=== PATIENT | female | born 1930 | race Caucasian/White ===

== ENCOUNTER 2021-01-20 15:40 | Inpatient (IN) | payer MEDICARE, OTHER ==
[2021-01-20] MEDS ORDERED: HYDROmorphone 0.5 MG/0.5 ML SYRINGE IVP STA (16:02)
[2021-01-20] MEDS ORDERED: SODIUM CHLORIDE 0.9% 500 ML 500 ML IV STA (16:02)
[2021-01-20] MEDS ORDERED: ONDANSETRON 4 MG/2 ML VIAL IVP STA (16:02)
--- NOTE | 2021-01-20 16:27 | ED ---
General Adult HPI - General Chief complaint: Abdominal Pain Stated complaint: Abd Pain Time Seen by Provider: 01/20/21 15:48 Source: patient, EMS, RN notes reviewed, old records reviewed Mode of arrival: EMS Limitations: no limitations - History of Present Illness Initial comments: 89-year-old female presenting for evaluation of upper abdominal pain which began approximately 4 hours prior to arrival. She's had multiple episodes of vomiting. She was transported by EMS, given Zofran and Toradol. She denies lower abdominal pain. She denies chest pain or shortness of breath. No preceding fever. Patient's pain began suddenly - Related Data Home Medications Medication Instructions Recorded Confirmed Acetaminophen [Tylenol Arthritis] 650 mg PO TID PRN 01/20/21 01/20/21 Apixaban [Eliquis] 5 mg PO BID 01/20/21 01/20/21 Atorvastatin Calcium [Lipitor] 40 mg PO HS 01/20/21 01/20/21 Calcium Carbonate [Calcium] 1,200 mg PO HS 01/20/21 01/20/21 Clopidogrel [Plavix] 75 mg PO DAILY@1200 01/20/21 01/20/21 Famotidine 20 mg PO BID 01/20/21 01/20/21 Ferrous Sulfate [Feosol] 325 mg PO BID@1200,199901/20/21 01/20/21 Furosemide [Lasix] 40 mg PO DAILY 01/20/21 01/20/21 Gabapentin [Neurontin] 300 mg PO BID 01/20/21 01/20/21 Latanoprost/Pf [Latanoprost 0.005% 1 drop BOTH EYES HS 01/20/21 01/20/21 Eye Drop] Loratadine [Claritin] 10 mg PO DAILY 01/20/21 01/20/21 Metoprolol Succinate (ER) [Toprol 100 mg PO DAILY 01/20/21 01/20/21 Xl] Mirabegron [Myrbetriq] 25 mg PO DAILY@1200 01/20/21 01/20/21 Potassium Chloride [Klor-Con 20] 20 meq PO DAILY 01/20/21 01/20/21 amLODIPine [Norvasc] 5 mg PO DAILY 01/20/21 01/20/21 hydrALAZINE HCL [Apresoline] 50 mg PO BID 01/20/21 01/20/21 metFORMIN HCL [Glucophage] 500 mg PO BID 01/20/21 01/20/21 Allergies Allergy/AdvReac Type Severity Reaction Status Date / Time No Known Allergies Allergy Verified 01/20/21 18:08 Review of Systems ROS Statement: Those systems with pertinent positive or pertinent negative responses have been documented in the HPI. ROS Other: All systems not noted in ROS Statement are negative. Past Medical History Past Medical History: Atrial Fibrillation, Diabetes Mellitus, Hypertension History of Any Multi-Drug Resistant Organisms: None Reported Past Surgical History: No Surgical Hx Reported Past Psychological History: No Psychological Hx Reported Smoking Status: Never smoker Past Alcohol Use History: Occasional Past Drug Use History: None Reported General Exam Limitations: no limitations General appearance: alert, in no apparent distress Head exam: Present: atraumatic, normocephalic Eye exam: Present: normal appearance, PERRL ENT exam: Present: normal exam Neck exam: Present: normal inspection. Absent: tenderness, meningismus Respiratory exam: Present: normal lung sounds bilaterally. Absent: respiratory distress, wheezes Cardiovascular Exam: Present: regular rate, irregular rhythm GI/Abdominal exam: Present: soft, distended, tenderness. Absent: guarding, rebound Extremities exam: Present: normal inspection, normal capillary refill. Absent: pedal edema Neurological exam: Present: alert, oriented X3, CN II-XII intact. Absent: motor sensory deficit Psychiatric exam: Present: normal affect, normal mood Skin exam: Present: warm, dry, intact. Absent: cyanosis, diaphoretic Course Vital Signs 01/20/21 15:43 Temperature 97.6 F Pulse Rate 60 Respiratory 18 Rate Blood Pressure 146/87 O2 Sat by Pulse 98 Oximetry EKG Findings - EKG Comments: EKG Findings:: EKG: A fibrillation low-voltage, rate 74, QRS duration 76, QTC [address] segment elevation. Medical Decision Making - Medical Decision Making 89-year-old female presenting for evaluation of abdominal pain. Patient is tender, across both upper quadrants but more severely tender in the right upper quadrant. She has had multiple episodes of vomiting. Workup reveals mild leukocytosis, 11.2. She has a normal lactic acid, normal transaminitis, normal bilirubin. Urinalysis is pending. CT shows a distended gallbladder, 5 cm. Concerning for acute cholecystitis. I discussed case with Dr. Hooks, recommends patient be admitted to internal medicine, with her on consultation. She will be kept nothing by mouth. IV antibiotics have been initiated. Patient and family agreeable with plan. - Lab Data Result diagrams: 01/20/21 16:12 01/20/21 16:12 Lab Results 01/20/21 01/20/21 01/20/21 Range/Units 16:12 16:12 16:12 WBC 11.2 H (3.8-10.6) k/uL RBC 3.53 L (3.80-5.40) m/uL Hgb 10.9 L (11.4-16.0) gm/dL Hct 34.9 (34.0-46.0) % MCV 98.9 (80.0-100.0) fL MCH 30.8 (25.0-35.0) pg MCHC 31.1 (31.0-37.0) g/dL RDW 13.6 (11.5-15.5) % Plt Count 481 H (150-450) k/uL MPV 7.8 Neutrophils % 74 % Lymphocytes % 16 % Monocytes % 6 % Eosinophils % 2 % Basophils % 0 % Neutrophils # 8.3 H (1.3-7.7) k/uL Lymphocytes # 1.8 (1.0-4.8) k/uL Monocytes # 0.7 (0-1.0) k/uL Eosinophils # 0.2 (0-0.7) k/uL Basophils # 0.1 (0-0.2) k/uL PT 11.2 (9.0-12.0) sec INR 1.1 (<1.2) APTT 26.0 (22.0-30.0) sec Sodium 138 (137-145) mmol/L Potassium 4.3 (3.5-5.1) mmol/L Chloride 106 (98-107) mmol/L Carbon Dioxide 24 (22-30) mmol/L Anion Gap 8 mmol/L BUN 20 H (7-17) mg/dL Creatinine 0.84 (0.52-1.04) mg/dL Est GFR (CKD-EPI)AfAm 72 (>60 ml/min/1.73 sqM) Est GFR (CKD-EPI)NonAf 62 (>60 ml/min/1.73 sqM) Glucose 148 H (74-99) mg/dL Plasma Lactic Acid Mil (0.7-2.0) mmol/L Calcium 10.8 H (8.4-10.2) mg/dL Total Bilirubin 0.5 (0.2-1.3) mg/dL AST 30 (14-36) U/L ALT 14 (4-34) U/L Alkaline Phosphatase 78 (38-126) U/L Troponin I (0.000-0.034) ng/mL Total Protein 6.8 (6.3-8.2) g/dL Albumin 3.9 (3.5-5.0) g/dL Amylase 83 (30-110) U/L Lipase 134 (23-300) U/L 01/20/21 01/20/21 Range/Units 16:12 16:12 WBC (3.8-10.6) k/uL RBC (3.80-5.40) m/uL Hgb (11.4-16.0) gm/dL Hct (34.0-46.0) % MCV (80.0-100.0) fL MCH (25.0-35.0) pg MCHC (31.0-37.0) g/dL RDW (11.5-15.5) % Plt Count (150-450) k/uL MPV Neutrophils % % Lymphocytes % % Monocytes % % Eosinophils % % Basophils % % Neutrophils # (1.3-7.7) k/uL Lymphocytes # (1.0-4.8) k/uL Monocytes # (0-1.0) k/uL Eosinophils # (0-0.7) k/uL Basophils # (0-0.2) k/uL PT (9.0-12.0) sec INR (<1.2) APTT (22.0-30.0) sec Sodium (137-145) mmol/L Potassium (3.5-5.1) mmol/L Chloride (98-107) mmol/L Carbon Dioxide (22-30) mmol/L Anion Gap mmol/L BUN (7-17) mg/dL Creatinine (0.52-1.04) mg/dL Est GFR (CKD-EPI)AfAm (>60 ml/min/1.73 sqM) Est GFR (CKD-EPI)NonAf (>60 ml/min/1.73 sqM) Glucose (74-99) mg/dL Plasma Lactic Acid Mil 1.9 (0.7-2.0) mmol/L Calcium (8.4-10.2) mg/dL Total Bilirubin (0.2-1.3) mg/dL AST (14-36) U/L ALT (4-34) U/L Alkaline Phosphatase (38-126) U/L Troponin I <0.012 (0.000-0.034) ng/mL Total Protein (6.3-8.2) g/dL Albumin (3.5-5.0) g/dL Amylase (30-110) U/L Lipase (23-300) U/L Disposition Clinical Impression: Abdominal pain, Acute cholecystitis Disposition: ADMITTED IP TO THIS [facility] Condition: Stable Is patient prescribed a controlled substance at d/c from ED?: No Referrals: Mohinder Tuttle DO [Primary Care Provider] - 1-2 days Decision to Admit Reason: Admit from EC Decision Date: 01/20/21 Decision Time: 18:15
[2021-01-20 16:30] LABS: Basophils # (A) 0.1 k/uL (0-0.2); Basophils % (A) 0 %; Eosinophils # (A) 0.2 k/uL (0-0.7); Eosinophils % (A) 2 %; HCT 34.9 % (34.0-46.0); HGB 10.9 gm/dL (11.4-16.0); Lymphocytes # (A) 1.8 k/uL (1.0-4.8); Lymphocytes % (A) 16 %; MCH 30.8 pg (25.0-35.0); MCHC 31.1 g/dL (31.0-37.0); MCV 98.9 fL (80.0-100.0); Mean Platelet Volume 7.8; Monocytes # (A) 0.7 k/uL (0-1.0); Monocytes % (A) 6 %; Neutrophils # (A) 8.3 k/uL (1.3-7.7); Neutrophils % (A) 74 %; Platelet Count 481 k/uL (150-450); RBC 3.53 m/uL (3.80-5.40); RDW 13.6 % (11.5-15.5); WBC 11.2 k/uL (3.8-10.6)
[2021-01-20 16:40] LABS: Albumin 3.9 g/dL (3.5-5.0); Calcium 10.8 mg/dL (8.4-10.2); INR 1.1 (<1.2); Potassium 4.3 mmol/L (3.5-5.1); Prothrombin Time 11.2 sec (9.0-12.0); Total Bilirubin 0.5 mg/dL (0.2-1.3); Total Protein 6.8 g/dL (6.3-8.2)
--- NOTE | 2021-01-20 17:36 | CT ---
EXAMINATION TYPE: CT abdomen pelvis w con DATE OF EXAM: 01/20/2021 COMPARISON: None HISTORY: upper abd pain CT DLP: 829.4 mGycm Automated exposure control for dose reduction was used. CONTRAST: Performed with IV Contrast, patient injected with 80 mL of Isovue 300. Images obtained from the diaphragm to the floor the pelvis with IV contrast. There is patchy interstitial infiltrates in the lower lobes bilaterally. There is atherosclerotic vas cular calcification. There is dense calcification in the mitral annulus. Heart is enlarged. There is no pleural effusion. There is dilated gallbladder measuring 5 cm in diameter. The bile ducts are not dilated. Spleen is in tact. The stomach is intact. There is no evidence of pancreatic mass. There is no adrenal mass. Kidneys show normal size and contour. There is 2 cm cortical cyst anterior left kidney. There is no hydronephrosis. There is no retroperitoneal adenopathy. Abdominal aorta is a theromatous. There is small hiatal hernia. Ureters are not dilated. The bladder distends smoothly. There is no inguinal hernia. There is no free fluid in the pelvis. There is no evidence of a pelvic mass. There is no mesenteric edema. There is no ascites or free air. There is no evidence of a bowel obstru ction. Appendix is posterior and appears normal. There are sigmoid diverticula. There is no evidence of diverticulitis. There are spondylotic changes of the lumbar spine. There is multilevel lumbar bony spinal stenosis. S tenosis is very severe at L4-5. There is less severe stenosis at L3-4. The bony pelvis is intact. The hip joints appear intact. IMPRESSION: Moderate atherosclerotic vascular disease. Mild sigmoid diverticulosis. Interstitial infiltrates and atelectasis in both lower lobes. Cardiomegaly. Dilated gallbladder suggestive of a bladder dysfunction or cholecystitis. No dilated ducts. Lumbar spondylotic changes with levoscoliosis and significant spinal stenosis at L4-5.
[2021-01-20] MEDS ORDERED: cefTRIAXone IN SWFI 1,000 MG/10 ML SYRINGE IVP STA (17:57)
[2021-01-20] MEDS ORDERED: NALOXONE 0.4 MG/ML 1 ML VIAL IV PRN (18:11)
[2021-01-20] MEDS ORDERED: metroNIDAZOLE-NS PMX 500 MG in SALINE 1 100ML.BAG IVPB STA (18:15)
[2021-01-20] MEDS: SODIUM CHLORIDE 0.9% 1,000 ML IV SCH (18:54)
[2021-01-20] MEDS: HYDROmorphone 0.5 MG/0.5 ML SYRINGE IVP PRN ×2 (19:03→22:14)
[2021-01-20 19:09] LABS: Appearance,Urine Clear (Clear); Bilirubin,Urine Negative (Negative); Blood,Urine Negative (Negative); Color,Urine Light Yellow; Glucose,Urine (UA) Negative (Negative); Ketones,Urine Negative (Negative); Leukocyte Esterase,Urine Negative (Negative); Nitrite,Urine Negative (Negative); PH, Urine 6.5 (5.0-8.0); Protein,Urine Negative (Negative); Specific Gravity,Urine 1.024 (1.001-1.035); Urobilinogen,Urine <2.0 mg/dL (<2.0)
[2021-01-20 20:34] LABS: Glucose,Whole Blood 137 mg/dL (75-99)
[2021-01-20] MEDS: ONDANSETRON 4 MG/2 ML VIAL IVP PRN (22:14)
--- NOTE | 2021-01-20 22:18 | P.HPIM ---
History of Present Illness H&P Date: 01/20/21 The patient is an 89-year-old female with a PMH of ALinnette gamez on Eliquis, type II DM, and hypertension who presents to the emergency room with complaints of sudden onset of abdominal pain. The patient reports that she was in her usual state of health until noon today when she suddenly developed right upper quadrant abdominal pain, 10 out of 10, with radiation throughout the upper abdomen. She reports associated nausea with several episodes of vomiting, nonbloody nonbilious. She reports never having such pain in the past. She reports that the pain was not associated with any obvious food intakes. She denied experiencing diarrhea, fever, or chills. At time of interview, she reported that her pain had improved to a 2 out of 10. She denied any history of gallbladder issues or pain. She further denied chest discomfort, shortness of breath, cough. In the emergency room a CT abdomen and pelvis with contrast revealed findings consistent with acute cholecystitis with a dilated gallbladder without any distended ducts. Laboratory evaluation was remarkable for WBC count of 11.2, platelets 41, hemoglobin 10.9, lactic acid 1.9, calcium 10.8, unremarkable UA, and positive coronavirus PCR. Review of systems: Pertinent positives and negatives as discussed in HPI, a complete review of systems was performed and all other systems are negative. Physical examination: General: non toxic, no distress, appears at stated age, normal weight Derm: no unusual rashes/lesions no unusual ecchymoses, warm, dry Head: atraumatic, normocephalic, symmetric Eyes: EOMI, no lid lag, anicteric sclera, pupils equal round reactive to light ENT: Nose and ears atraumatic, no thrush, no pharyngeal erythema Neck: No thyromegaly, no cervical lymphadenopathy, trachea midline, supple Mouth: no lip lesion, mucus membranes moist Cardiovascular: S1S2 reg, systolic murmur appreciated, positive posterior tibial pulse bilateral, no edema, capillary refill less than 2 seconds Lungs: CTA bilateral, no rhonchi, no rales , no accessory muscle use Abdominal: soft, mild abdominal tenderness largely in the right upper quadrant, some guarding, no appreciable organomegaly, hypoactive bowel sounds Ext: no gross muscle atrophy, muscle strength 4 out of 5 in all 4 extremities grossly, no contractures, Neuro: CN II-XI grossly intact, light touch intact all 4 extremities, finger to nose within normal limits, Psych: Alert, oriented, appropriate affect Assessment/plan Abdominal pain, suspected secondary to acute cholecystitis -Surgery consulted -Continue with IV fluids and IV antibiotics ceftriaxone and Flagyl -Hold the patient's Eliquis in anticipation of possible surgery Preoperative evaluation -The patient reports that she lives with her daughter but is fairly independent and is able to perform most of her ADLs (ie washing dishes, doing laundry) -She does not use any mobility devices -NSQIP Score: Serious complications: 2.7% vs 2.2 (average risk); Cardiac complications: 0.3% vs 0.1% (average risk) -The patient is a moderate risk of perioperative complications due to her advanced age and multiple comorbidities -Risks and benefits should be discussed in detail including any possible non- operative options Coronavirus PCR positive -The patient is currently denying SOB, fever, or chest pain -Not requiring supplemental oxygen at this time -The patient is vaccinated and had also received her booster shot Thrombocytosis -Possibly reactive -Monitor for now Chronic conditions: Type 2 DM, hypertension, hyperlipidemia -Continue home meds -Check A1c -Hold oral hypoglycemics -Lispro insulin sliding scale and blood glucose monitoring DVT prophylaxis -Heparin subq The patient is admitted with an anticipated greater than 2 midnight stay for evaluation of acute cholecystitis CODE STATUS: Full Code Discussed with: Patient Anticipated discharge date: 2-[address]: Home Past Medical History Past Medical History: Atrial Fibrillation, Diabetes Mellitus, Hypertension History of Any Multi-Drug Resistant Organisms: None Reported Past Surgical History: No Surgical Hx Reported Past Psychological History: No Psychological Hx Reported Smoking Status: Never smoker Past Alcohol Use History: Occasional Past Drug Use History: None Reported - Past Family History Mother Family Medical History: Unable to Obtain (Not applicable due to patient's advanced age) Medications and Allergies Home Medications Medication Instructions Recorded Confirmed Type Acetaminophen [Tylenol Arthritis] 650 mg PO TID PRN 01/20/21 01/20/21 History Apixaban [Eliquis] 5 mg PO BID 01/20/21 01/20/21 History Atorvastatin Calcium [Lipitor] 40 mg PO HS 01/20/21 01/20/21 History Calcium Carbonate [Calcium] 1,200 mg PO HS 01/20/21 01/20/21 History Clopidogrel [Plavix] 75 mg PO DAILY@1200 01/20/21 01/20/21 History Famotidine 20 mg PO BID 01/20/21 01/20/21 History Ferrous Sulfate [Feosol] 325 mg PO BID@1200,199901/20/21 01/20/21 History Furosemide [Lasix] 40 mg PO DAILY 01/20/21 01/20/21 History Gabapentin [Neurontin] 300 mg PO BID 01/20/21 01/20/21 History Latanoprost/Pf [Latanoprost 0.005% 1 drop BOTH EYES HS 01/20/21 01/20/21 History Eye Drop] Loratadine [Claritin] 10 mg PO DAILY 01/20/21 01/20/21 History Metoprolol Succinate (ER) [Toprol 100 mg PO DAILY 01/20/21 01/20/21 History Xl] Mirabegron [Myrbetriq] 25 mg PO DAILY@119901/20/21 01/20/21 History Potassium Chloride [Klor-Con 20] 20 meq PO DAILY 01/20/21 01/20/21 History amLODIPine [Norvasc] 5 mg PO DAILY 01/20/21 01/20/21 History hydrALAZINE HCL [Apresoline] 50 mg PO BID 01/20/21 01/20/21 History metFORMIN HCL [Glucophage] 500 mg PO BID 01/20/21 01/20/21 History traMADol HCL 50 mg PO TID PRN 01/20/21 01/20/21 History Allergies Allergy/AdvReac Type Severity Reaction Status Date / Time No Known Allergies Allergy Verified 01/20/21 18:08 Physical Exam Vitals: Vital Signs Temp Pulse Pulse Resp BP BP Pulse Ox 01/20/21 20:23 97.6 F 84 16 173/73 98 01/20/21 18:51 74 18 155/72 99 01/20/21 15:43 97.6 F 60 18 146/87 98 Intake and Output 01/20/21 01/20/21 01/20/21 06:59 14:59 22:59 Other: Weight 58.513 kg Results CBC & Chem 7: 01/20/21 16:12 01/20/21 16:12 Labs: Abnormal Lab Results - Last 24 Hours (Table) 01/20/21 01/20/21 01/20/21 Range/Units 16:12 16:12 18:50 WBC 11.2 H (3.8-10.6) k/uL RBC 3.53 L (3.80-5.40) m/uL Hgb 10.9 L (11.4-16.0) gm/dL Plt Count 481 H (150-450) k/uL Neutrophils # 8.3 H (1.3-7.7) k/uL BUN 20 H (7-17) mg/dL Glucose 148 H (74-99) mg/dL POC Glucose (mg/dL) (75-99) mg/dL Calcium 10.8 H (8.4-10.2) mg/dL Coronavirus (PCR) Detected A (Not Detectd) 01/20/21 Range/Units 20:33 WBC (3.8-10.6) k/uL RBC (3.80-5.40) m/uL Hgb (11.4-16.0) gm/dL Plt Count (150-450) k/uL Neutrophils # (1.3-7.7) k/uL BUN (7-17) mg/dL Glucose (74-99) mg/dL POC Glucose (mg/dL) 137 H (75-99) mg/dL Calcium (8.4-10.2) mg/dL Coronavirus (PCR) (Not Detectd)
[2021-01-20] MEDS: LATANOPROST 0.005% OPHTH DROPS 2.5 ML BTL BOTH EYES SCH (22:40)
[2021-01-21] MEDS: HEPARIN SODIUM,PORCINE/PF 5,000 UNIT/0.5 ML SYRINGE SQ SCH ×3 (00:10→17:28)
[2021-01-21] MEDS: metroNIDAZOLE-NS PMX 500 MG in SALINE 1 100ML.BAG IVPB SCH ×3 (02:09→21:46)
[2021-01-21] MEDS: ONDANSETRON 4 MG/2 ML VIAL IVP PRN (07:33)
[2021-01-21] MEDS: HYDROmorphone 0.5 MG/0.5 ML SYRINGE IVP PRN (07:33)
[2021-01-21 08:20] LABS: Glucose,Whole Blood 157 mg/dL (75-99)
[2021-01-21] MEDS: INSULIN ASPART (NovoLOG) 100 UNIT/ML VIAL SQ SCH ×4 (08:38→21:37)
[2021-01-21] MEDS ORDERED: FUROSEMIDE 40 MG TAB PO SCH (09:00)
[2021-01-21] MEDS ORDERED: FAMOTIDINE 20 MG TAB PO SCH (09:00)
[2021-01-21] MEDS: hydrALAZINE HCL 50 MG TAB PO SCH ×2 (09:53→21:47)
[2021-01-21] MEDS: METOPROLOL SUCCINATE (ER) 100 MG TAB.ER.24H PO SCH (09:53)
[2021-01-21] MEDS: GABAPENTIN 300 MG CAP PO SCH ×2 (09:53→21:46)
[2021-01-21] MEDS: amLODIPine 5 MG TAB PO SCH (09:53)
[2021-01-21] MEDS: POTASSIUM CHLORIDE ER 20 MEQ TAB.ER PO SCH (09:53)
[2021-01-21 11:26] LABS: HCT 32.8 % (37.2-46.3); HGB 9.9 g/dL (12.0-15.0); MCH 30.7 pg (27.0-32.0); MCHC 30.2 g/dL (32.0-37.0); MCV 101.9 fL (80.0-97.0); Mean Platelet Volume 10.2 fL (9.5-12.2); Platelet Count 425 X 10*3/uL (140-440); RBC 3.22 X 10*6/uL (4.10-5.20); RDW 14.6 % (11.5-14.5); WBC 24.81 X 10*3/uL (4.50-10.00)
[2021-01-21] MEDS ORDERED: CLOPIDOGREL 75 MG TAB PO SCH (12:00)
[2021-01-21 12:25] LABS: Glucose,Whole Blood 149 mg/dL (75-99)
[2021-01-21 13:26] LABS: African American GFR (CKD) 53.1 (60.0-200.0); Albumin 3.5 g/dL (3.8-4.9); Albumin/Globulin Ratio 1.67 (1.60-3.17); Anion Gap 13.7 mmol/L (4.00-12.00); BUN/Creat Ratio 18.06 Ratio (12.00-20.00); Blood Urea Nitrogen 19.5 mg/dL (9.0-27.0); Calcium 9.4 mg/dL (8.7-10.3); Carbon Dioxide 20.5 mmol/L (21.6-31.8); Globulin 2.1 g/dL (1.6-3.3); Non-African American GFR(CKD) 45.8 (60.0-200.0); Potassium 4.2 mmol/L (3.5-5.5); Total Bilirubin 1.1 mg/dL (0.30-1.20); Total Protein 5.6 g/dL (6.2-8.2)
--- NOTE | 2021-01-21 13:28 | P.GSCN ---
History of Present Illness Consult date: 01/21/21 History of present illness: CHIEF COMPLAINT: Abdominal pain HISTORY OF PRESENT ILLNESS: 89-year-old female with a past medical history of atrial fibrillation, diabetes mellitus, and hypertension who presented to the emergency department yesterday with complaints of abdominal pain. The patient was complaining of abdominal pain that started 1-2 days ago mostly located in the lower abdomen as well as right upper quadrant. She had a CT of the abdomen and pelvis that showed moderate arthrosclerotic vascular disease mild sigmoid diverticulosis. Interstitial infiltrates and atelectasis both lower lobes with cardiomegaly. There is a dilated gallbladder suggestive of bladder dysfunction or cholecystitis. No dilated ducts. Gen. surgery was consulted for abdominal pain and evaluation of gallbladder. Patient denies any previous history of gal lbladder disease. Denies any previous abdominal pain that has been similar. States she has no abdominal pain at this time. On admission she was testing positive for COVID-19. On admission WBC 11.2 with a repeat today of 24.8, hemoglobin 9.9 platelet count 425,000 INR 1.1 LFTs within normal limits, amylase 83, lipase 134. The patient is on Ahlquist and Plavix for atrial fibrillation. She's a spike in her temp early this morning to 100.3. She is denying any associated nausea or vomiting with the abdominal pain. She continues to state she has no abdominal pain at this time along with no nausea or vomiting. States bowel movements have been normal. PAST MEDICAL HISTORY: Atrial fibrillation, diabetes mellitus, hypertension PAST SURGICAL HISTORY: No Reported surgical history MEDICATIONS: See list. ALLERGIES: See list. SOCIAL HISTORY: No illicit drug use. REVIEW OF SYSTEMS: CONSTITUTIONAL: Denies fever or chills. HEENT: Denies blurred vision, vision changes, or eye pain. Denies hemoptysis ENDOCRINE: Denies heat or cold intolerance. CARDIOVASCULAR: Denies chest pain or pressure. RESPIRATORY: No shortness of breath. GASTROINTESTINAL: Abdominal pain reported over the last 1-2 days, currently denies abdominal pain at this time. Denies nausea or vomiting. NEURO: Denies history of seizures. PSYCH: No depression or suicidal ideation HEMATOLOGIC: Denies bleeding disorders. LYMPHATIC: The patient denies any lumps and bumps around the neck. GENITOURINARY: Denies any blood in urine or increased urinary frequency. MUSCULOSKELETAL: Denies myalgias. Denies joint swelling. Denies decreased range of motion beyond patients baseline. SKIN: Denies pruitis. Denies rash. PHYSICAL EXAM: VITAL SIGNS: Reviewed GENERAL: Well-developed in no acute distress. HEENT: No sclera icterus. Extraocular movements grossly intact. Moist buccal mucosa. Head is atraumatic, normocephalic. Hears conversational speech. No nasal drainage. NECK: Supple without lymphadenopathy. CHEST: Non-labored respirations and equal bilateral excursions. CARDIOVASCULAR: Palpable 2+ radial pulses. ABDOMEN: Soft. Nondistended. Lower abdominal tenderness with palpation. MUSCULOSKELETAL: No clubbing or cyanosis. NEUROLOGIC: No focal or lateralizing signs. Cranial nerves II through XII grossly intact. PSYCH: Appropriate affect. Alert and oriented to person, place and time. SKIN: Well perfused. Good skin turgor. LABORATORY DATA: WBC 24.8 hemoglobin 9.9 hematocrit 32.8 platelet count 425,000 INR 1.1 sodium 138 potassium 4.3 BUN 20 creatinine 0.84 glucose 149 Total bilirubin 0.5 AST 30 ALT 14 alkaline phosphatase 78 amylase 83 lipase 134 Humphrey virus PCR positive IMAGING: CT of the abdomen and pelvis that showed moderate arthrosclerotic vascular disease mild sigmoid diverticulosis. Interstitial infiltrates and atelectasis both lower lobes with cardiomegaly. There is a dilated gallbladder suggestive of bladder dysfunction or cholecystitis. No dilated ducts. ASSESSMENT: 1. Abdominal pain 2. Leukocytosis 3. Humphrey virus PCR positive 4. Atrial fibrillation on Eliquis 5. Diabetes mellitus 6. Hypertension PLAN: - HIDA scan ordered - Repeat CBC with differential tomorrow - Clear liquid diet after HIDA scan - Further recommendations forthcoming from surgeon Thank you for this consultation allowing us take part in the plan of care of your patient during her hospital stay. The impression and plan of care has been dictated as directed. Dr. Hooks I performed a history and examination of this patient, discussed the same with the dictator. I agree with the dictator's note ,documented as a scribe. Any additional findings or plans will be noted. Past Medical History Past Medical History: Atrial Fibrillation, Diabetes Mellitus, Hypertension History of Any Multi-Drug Resistant Organisms: None Reported Past Surgical History: No Surgical Hx Reported Past Psychological History: No Psychological Hx Reported Smoking Status: Never smoker Past Alcohol Use History: Occasional Past Drug Use History: None Reported - Past Family History Mother Family Medical History: Unable to Obtain (Not applicable due to patient's advanced age) Medications and Allergies Home Medications Medication Instructions Recorded Confirmed Type Acetaminophen [Tylenol Arthritis] 650 mg PO TID PRN 01/20/21 01/20/21 History Apixaban [Eliquis] 5 mg PO BID 01/20/21 01/20/21 History Atorvastatin Calcium [Lipitor] 40 mg PO HS 01/20/21 01/20/21 History Calcium Carbonate [Calcium] 1,200 mg PO HS 01/20/21 01/20/21 History Clopidogrel [Plavix] 75 mg PO DAILY@1200 01/20/21 01/20/21 History Famotidine 20 mg PO BID 01/20/21 01/20/21 History Ferrous Sulfate [Feosol] 325 mg PO BID@1200,199901/20/21 01/20/21 History Furosemide [Lasix] 40 mg PO DAILY 01/20/21 01/20/21 History Gabapentin [Neurontin] 300 mg PO BID 01/20/21 01/20/21 History Latanoprost/Pf [Latanoprost 0.005% 1 drop BOTH EYES HS 01/20/21 01/20/21 History Eye Drop] Loratadine [Claritin] 10 mg PO DAILY 01/20/21 01/20/21 History Metoprolol Succinate (ER) [Toprol 100 mg PO DAILY 01/20/21 01/20/21 History Xl] Mirabegron [Myrbetriq] 25 mg PO DAILY@1200 01/20/21 01/20/21 History Potassium Chloride [Klor-Con 20] 20 meq PO DAILY 01/20/21 01/20/21 History amLODIPine [Norvasc] 5 mg PO DAILY 01/20/21 01/20/21 History hydrALAZINE HCL [Apresoline] 50 mg PO BID 01/20/21 01/20/21 History metFORMIN HCL [Glucophage] 500 mg PO BID 01/20/21 01/20/21 History traMADol HCL 50 mg PO TID PRN 01/20/21 01/20/21 History Allergies Allergy/AdvReac Type Severity Reaction Status Date / Time No Known Allergies Allergy Verified 01/20/21 18:08 Surgical - Exam Vital Signs Temp Pulse Resp BP Pulse Ox 97.6 F 60 18 146/87 98 01/20/21 15:43 01/20/21 15:43 01/20/21 15:43 01/20/21 15:43 01/20/21 15:43 Results - Labs 01/21/21 06:49 01/20/21 16:12 Abnormal Lab Results - Last 24 Hours (Table) 01/20/21 01/20/21 01/20/21 Range/Units 16:12 16:12 18:50 WBC 11.2 H (3.8-10.6) k/uL RBC 3.53 L (3.80-5.40) m/uL Hgb 10.9 L (11.4-16.0) gm/dL Hct (37.2-46.3) % MCV (80.0-97.0) fL MCHC (32.0-37.0) g/dL RDW (11.5-14.5) % Plt Count 481 H (150-450) k/uL Neutrophils # 8.3 H (1.3-7.7) k/uL BUN 20 H (7-17) mg/dL Glucose 148 H (74-99) mg/dL POC Glucose (mg/dL) (75-99) mg/dL Calcium 10.8 H (8.4-10.2) mg/dL Coronavirus (PCR) Detected A (Not Detectd) 01/20/21 01/21/21 01/21/21 Range/Units 20:33 06:49 08:12 WBC 24.81 H (3.8-10.6) k/uL RBC 3.22 L (3.80-5.40) m/uL Hgb 9.9 L (11.4-16.0) gm/dL Hct 32.8 L (37.2-46.3) % MCV 101.9 H (80.0-97.0) fL MCHC 30.2 L (32.0-37.0) g/dL RDW 14.6 H (11.5-14.5) % Plt Count (150-450) k/uL Neutrophils # (1.3-7.7) k/uL BUN (7-17) mg/dL Glucose (74-99) mg/dL POC Glucose (mg/dL) 137 H 157 H (75-99) mg/dL Calcium (8.4-10.2) mg/dL Coronavirus (PCR) (Not Detectd) 01/21/21 Range/Units 12:19 WBC (3.8-10.6) k/uL RBC (3.80-5.40) m/uL Hgb (11.4-16.0) gm/dL Hct (37.2-46.3) % MCV (80.0-97.0) fL MCHC (32.0-37.0) g/dL RDW (11.5-14.5) % Plt Count (150-450) k/uL Neutrophils # (1.3-7.7) k/uL BUN (7-17) mg/dL Glucose (74-99) mg/dL POC Glucose (mg/dL) 149 H (75-99) mg/dL Calcium (8.4-10.2) mg/dL Coronavirus (PCR) (Not Detectd) Diabetes panel 01/20/21 Range/Units 16:12 Sodium 138 (137-145) mmol/L Potassium 4.3 (3.5-5.1) mmol/L Chloride 106 (98-107) mmol/L Carbon Dioxide 24 (22-30) mmol/L BUN 20 H (7-17) mg/dL Creatinine 0.84 (0.52-1.04) mg/dL Glucose 148 H (74-99) mg/dL Calcium 10.8 H (8.4-10.2) mg/dL AST 30 (14-36) U/L ALT 14 (4-34) U/L Alkaline Phosphatase 78 (38-126) U/L Total Protein 6.8 (6.3-8.2) g/dL Albumin 3.9 (3.5-5.0) g/dL Calcium panel 01/20/21 Range/Units 16:12 Calcium 10.8 H (8.4-10.2) mg/dL Albumin 3.9 (3.5-5.0) g/dL Pituitary panel 01/20/21 Range/Units 16:12 Sodium 138 (137-145) mmol/L Potassium 4.3 (3.5-5.1) mmol/L Chloride 106 (98-107) mmol/L Carbon Dioxide 24 (22-30) mmol/L BUN 20 H (7-17) mg/dL Creatinine 0.84 (0.52-1.04) mg/dL Glucose 148 H (74-99) mg/dL Calcium 10.8 H (8.4-10.2) mg/dL Adrenal panel 01/20/21 Range/Units 16:12 Sodium 138 (137-145) mmol/L Potassium 4.3 (3.5-5.1) mmol/L Chloride 106 (98-107) mmol/L Carbon Dioxide 24 (22-30) mmol/L BUN 20 H (7-17) mg/dL Creatinine 0.84 (0.52-1.04) mg/dL Glucose 148 H (74-99) mg/dL Calcium 10.8 H (8.4-10.2) mg/dL Total Bilirubin 0.5 (0.2-1.3) mg/dL AST 30 (14-36) U/L ALT 14 (4-34) U/L Alkaline Phosphatase 78 (38-126) U/L Total Protein 6.8 (6.3-8.2) g/dL Albumin 3.9 (3.5-5.0) g/dL
--- NOTE | 2021-01-21 15:02 | NM ---
EXAMINATION TYPE: NM hepatobiliary wo EF DATE OF EXAM: 01/21/2021 COMPARISON: CT abdomen and pelvis from yesterday HISTORY: Upper abdominal pain. Diminished appetite. TECHNIQUE: After the intravenous administration of 4.14 mCi Tc 99m Mebrofenin hepatobiliary scintigra phy is performed. Immediate images post injection. FINDINGS: There is satisfactory initial accumulation of tracer by the liver. The gallbladder is not distinctly visualized even after 35 minutes. The small bowel activity is noted within 15 minutes. Patient refu sed to continue imaging after 35 minutes. IMPRESSION: Nonvisualized gallbladder is consistent with acute cholecystitis though the exam was not completely extended to 60 minutes to be more definitive.
[2021-01-21] MEDS: ACETAMINOPHEN TAB 325 MG TAB PO PRN (15:27)
--- NOTE | 2021-01-21 16:33 | P.PN ---
Subjective Progress Note Date: 01/21/21 Principal diagnosis: Acute cholecystitis Patient just received Dilaudid for pain. She is currently slightly off. She is unable to provide accurate complaints at this point. She had a maximum temperature of 100.3 last night. Objective - Vital Signs Vital signs: Vital Signs Temp 97.6 F 01/21/21 15:00 Pulse 78 01/21/21 15:00 Resp 16 01/21/21 15:00 BP 150/71 01/21/21 15:00 Pulse Ox 96 01/21/21 15:00 Intake & Output 01/20/21 01/21/21 01/21/21 18:59 06:59 18:59 Weight 58.513 kg 58.513 kg Other: Voiding Method External Catheter External Catheter # Voids 2 - Exam Constitutional: No acute distress, conversant, pleasant Eyes:Anicteric sclerae, moist conjunctiva, no lid-lag, PERRLA, ENMT: Oropharynx clear, no erythema, exudates Neck: Supple, FROM, no masses, or JVD, No carotid bruits, No thyromegaly Lungs: Clear to auscultation, Clear to percussion, Normal respiratory effort, no accessory muscle use Cardiovascular: Heart regular in rate and rhythm, No murmurs, gallops, or rubs, No peripheral edema Abdominal: Soft, very tender especially in the right upper quadrant, no guarding, rebound or rigidity, Normoactive bowel sounds, No hepatomegaly, No splenomegaly, No palpable mass Skin: Normal temperature, tone, texture, turgor, no induration, No subcutaneous nodules, No rash, lesions, No ulcers Extremities: No digital cyanosis, No clubbing, Pedal pulses intact and symmetrical, Radial pulses intact and symmetrical, No calf tenderness Psychiatric: Alert and oriented to person, place but not to time, appropriate af fect, intact judgement Neuro: Muscles Strength 5/5 in all 4 extremities, Sensation to light touch grossly present throughout, Cranial nerves II-XII grossly intact, no focal sensory deficits - Labs CBC & Chem 7: 01/21/21 06:49 01/21/21 06:49 Labs: Abnormal Lab Results - Last 24 Hours (Table) 01/20/21 01/20/21 01/20/21 Range/Units 16:12 16:12 18:50 WBC 11.2 H (3.8-10.6) k/uL RBC 3.53 L (3.80-5.40) m/uL Hgb 10.9 L (11.4-16.0) gm/dL Hct (37.2-46.3) % MCV (80.0-97.0) fL MCHC (32.0-37.0) g/dL RDW (11.5-14.5) % Plt Count 481 H (150-450) k/uL Neutrophils # 8.3 H (1.3-7.7) k/uL Carbon Dioxide (21.6-31.8) mmol/L Anion Gap (4.00-12.00) mmol/L BUN 20 H (7-17) mg/dL Est GFR (CKD-EPI)AfAm (60.0-200.0) Est GFR (CKD-EPI)NonAf (60.0-200.0) Glucose 148 H (74-99) mg/dL POC Glucose (mg/dL) (75-99) mg/dL Calcium 10.8 H (8.4-10.2) mg/dL AST (13-35) U/L ALT (8-44) U/L Total Protein (6.2-8.2) g/dL Albumin (3.8-4.9) g/dL Coronavirus (PCR) Detected A (Not Detectd) 01/20/21 01/21/21 01/21/21 Range/Units 20:33 06:49 06:49 WBC 24.81 H (3.8-10.6) k/uL RBC 3.22 L (3.80-5.40) m/uL Hgb 9.9 L (11.4-16.0) gm/dL Hct 32.8 L (37.2-46.3) % MCV 101.9 H (80.0-97.0) fL MCHC 30.2 L (32.0-37.0) g/dL RDW 14.6 H (11.5-14.5) % Plt Count (150-450) k/uL Neutrophils # (1.3-7.7) k/uL Carbon Dioxide 20.5 L (21.6-31.8) mmol/L Anion Gap 13.70 H (4.00-12.00) mmol/L BUN (7-17) mg/dL Est GFR (CKD-EPI)AfAm 53.1 L (60.0-200.0) Est GFR (CKD-EPI)NonAf 45.8 L (60.0-200.0) Glucose 141 H (74-99) mg/dL POC Glucose (mg/dL) 137 H (75-99) mg/dL Calcium (8.4-10.2) mg/dL AST 264 H (13-35) U/L ALT 138 H (8-44) U/L Total Protein 5.6 L (6.2-8.2) g/dL Albumin 3.5 L (3.8-4.9) g/dL Coronavirus (PCR) (Not Detectd) 01/21/21 01/21/21 Range/Units 08:12 12:19 WBC (3.8-10.6) k/uL RBC (3.80-5.40) m/uL Hgb (11.4-16.0) gm/dL Hct (37.2-46.3) % MCV (80.0-97.0) fL MCHC (32.0-37.0) g/dL RDW (11.5-14.5) % Plt Count (150-450) k/uL Neutrophils # (1.3-7.7) k/uL Carbon Dioxide (21.6-31.8) mmol/L Anion Gap (4.00-12.00) mmol/L BUN (7-17) mg/dL Est GFR (CKD-EPI)AfAm (60.0-200.0) Est GFR (CKD-EPI)NonAf (60.0-200.0) Glucose (74-99) mg/dL POC Glucose (mg/dL) 157 H 149 H (75-99) mg/dL Calcium (8.4-10.2) mg/dL AST (13-35) U/L ALT (8-44) U/L Total Protein (6.2-8.2) g/dL Albumin (3.8-4.9) g/dL Coronavirus (PCR) (Not Detectd) Assessment and Plan Plan: Abdominal pain, suspected secondary to acute cholecystitis -Surgery consulted -Continue with IV fluids and IV antibiotics ceftriaxone and Flagyl -Hold the patient's Eliquis in anticipation of possible surgery Coronavirus PCR positive -The patient is currently denying SOB, fever, or chest pain -Not requiring supplemental oxygen at this time -The patient is vaccinated and had also received her booster shot Thrombocytosis -Possibly reactive -Monitor for now Chronic conditions: Type 2 DM, hypertension, hyperlipidemia -Continue home meds -A1c 5.9 -Hold oral hypoglycemics -Lispro insulin sliding scale and blood glucose monitoring DVT prophylaxis -Heparin subq CODE STATUS: Full Code Discussed with: Patient Anticipated discharge date: 2-[address]: Home
[2021-01-21 17:55] LABS: Glucose,Whole Blood 158 mg/dL (75-99)
--- NOTE | 2021-01-21 18:41 | XR ---
EXAMINATION: XR chest 1V portable DATE AND TIME: 01/21/2021 5:58 PM CLINICAL INDICATION: covid positive TECHNIQUE: AP upright portable COMPARISON: None FINDINGS: Right lung appears clear radiographically, as does the upper left lung parenchyma. There is homogeneo us added opacity over the lower left lung, which appears to represent soft tissue; this is allowing v isualization of the left lower lobe. Lateral radiography, or CT imaging, can further characterize. The pleural spaces are negative as seen. The cardiac silhouette is not enlarged. The remainder of the mediastinal silhouette is unremarkable. The skeletal structures and soft tissues are negative for acute findings. IMPRESSION: Soft tissue opacity over entire lower half of left hemithorax.
[2021-01-21 21:18] LABS: Glucose,Whole Blood 138 mg/dL (75-99)
[2021-01-21] MEDS: SODIUM CHLORIDE 0.9% 1,000 ML IV SCH ×2 (21:43→21:44)
[2021-01-21] MEDS: ATORVASTATIN 40 MG TAB PO SCH (21:46)
[2021-01-21] MEDS: LATANOPROST 0.005% OPHTH DROPS 2.5 ML BTL BOTH EYES SCH (21:47)
[2021-01-22] MEDS: metroNIDAZOLE-NS PMX 500 MG in SALINE 1 100ML.BAG IVPB SCH ×3 (03:37→20:21)
[2021-01-22 07:24] LABS: Glucose,Whole Blood 134 mg/dL (75-99)
[2021-01-22 08:54] LABS: Basophils # (A) 0.1 k/uL (0-0.2); Basophils % (A) 1 %; Eosinophils # (A) 0.1 k/uL (0-0.7); Eosinophils % (A) 1 %; HCT 29.6 % (34.0-46.0); Lymphocytes # (A) 1.4 k/uL (1.0-4.8); Lymphocytes % (A) 10 %; MCH 31.9 pg (25.0-35.0); MCHC 31.7 g/dL (31.0-37.0); MCV 100.5 fL (80.0-100.0); Macrocytosis Slight; Mean Platelet Volume 7.6; Monocytes # (A) 0.8 k/uL (0-1.0); Monocytes % (A) 5 %; Neutrophils # (A) 11.9 k/uL (1.3-7.7); Neutrophils % (A) 81 %; Platelet Count 363 k/uL (150-450); RBC 2.94 m/uL (3.80-5.40); RDW 14.4 % (11.5-15.5); WBC 14.7 k/uL (3.8-10.6)
[2021-01-22 08:56] LABS: HGB 9.4 gm/dL (11.4-16.0)
--- NOTE | 2021-01-22 08:57 | P.PN ---
Progress Note - Text Progress Note Date: 01/22/21 Spoke to daughter April [phone] regarding her mother. Patient has positive HIDA scan with acute cholecystitis and has sepsis. Patient has significant cardiac history and was given plavix last night. Patient is also COVID+. Recommend cardiology consultation including IV antibiotics. Addie cystectomy extremely high risk today for bleeding including less than 48 hrs last dose of Eliquis and last night dose of Plavix. May have diet today. Further recommendations pending cardiology risk assessment.
[2021-01-22 09:50] LABS: ALT 153 U/L (4-34); AST 154 U/L (14-36); African American GFR (CKD) 54 (>60 ml/min/1.73 sqM); Albumin 2.7 g/dL (3.5-5.0); Alkaline Phosphatase 102 U/L (38-126); Anion Gap 6 mmol/L; Blood Urea Nitrogen 26 mg/dL (7-17); Calcium 8.8 mg/dL (8.4-10.2); Carbon Dioxide 23 mmol/L (22-30); Chloride 110 mmol/L (98-107); Globulin 2.6 g/dL; Glucose 104 mg/dL (74-99); Magnesium 1.7 mg/dL (1.6-2.3); Non-African American GFR(CKD) 47 (>60 ml/min/1.73 sqM); Sodium 139 mmol/L (137-145); Total Bilirubin 0.4 mg/dL (0.2-1.3); Total Protein 5.3 g/dL (6.3-8.2)
[2021-01-22] MEDS: INSULIN ASPART (NovoLOG) 100 UNIT/ML VIAL SQ SCH ×4 (09:56→23:14)
[2021-01-22] MEDS: GABAPENTIN 300 MG CAP PO SCH ×2 (09:57→20:21)
[2021-01-22] MEDS: hydrALAZINE HCL 50 MG TAB PO SCH ×2 (09:57→20:21)
[2021-01-22] MEDS: METOPROLOL SUCCINATE (ER) 100 MG TAB.ER.24H PO SCH (09:58)
[2021-01-22] MEDS: POTASSIUM CHLORIDE ER 20 MEQ TAB.ER PO SCH (09:58)
[2021-01-22] MEDS: FAMOTIDINE 20 MG TAB PO SCH (09:58)
[2021-01-22] MEDS: amLODIPine 5 MG TAB PO SCH (09:58)
--- NOTE | 2021-01-22 11:28 | P.PN ---
Subjective Progress Note Date: 01/22/21 Principal diagnosis: Acute cholecystitis Patient is feeling better today. She is currently eating her breakfast. No significant abdominal pain. No fevers or chills. No nausea or vomiting. Objective - Vital Signs Vital signs: Vital Signs Temp 98.2 F 01/22/21 07:00 Pulse 77 01/22/21 07:00 Resp 18 01/22/21 07:00 BP 126/69 01/22/21 07:00 Pulse Ox 97 01/22/21 07:00 Intake & Output 01/21/21 01/22/21 01/22/21 18:59 06:59 18:59 Intake Total 50 Output Total 0 Balance 50 0 Intake: Oral 50 Output: Emesis 0 Other: Voiding Method External Catheter External Catheter Diaper - Exam Constitutional: No acute distress, conversant, pleasant Eyes:Anicteric sclerae, moist conjunctiva, no lid-lag, PERRLA, ENMT: Oropharynx clear, no erythema, exudates Neck: Supple, FROM, no masses, or JVD, No carotid bruits, No thyromegaly Lungs: Clear to auscultation, Clear to percussion, Normal respiratory effort, no accessory muscle use Cardiovascular: Heart regular in rate and rhythm, No murmurs, gallops, or rubs, No peripheral edema Abdominal: Soft, very tender especially in the right upper quadrant, no guarding, rebound or rigidity, Normoactive bowel sounds, No hepatomegaly, No splenomegaly, No palpable mass Skin: Normal temperature, tone, texture, turgor, no induration, No subcutaneous nodules, No rash, lesions, No ulcers Extremities: No digital cyanosis, No clubbing, Pedal pulses intact and symmetrical, Radial pulses intact and symmetrical, No calf tenderness Psychiatric: Alert and oriented to person, place but not to time, appropriate affect, intact judgement Neuro: Muscles Strength 5/5 in all 4 extremities, Sensation to light touch grossly present throughout, Cranial nerves II-XII grossly intact, no focal sensory deficits - Labs CBC & Chem 7: 01/22/21 08:02 01/22/21 08:02 Labs: Abnormal Lab Results - Last 24 Hours (Table) 01/21/21 01/21/21 01/21/21 Range/Units 06:49 06:49 12:19 WBC 24.81 H (4.50-10.00) X 10*3/uL RBC 3.22 L (4.10-5.20) X 10*6/uL Hgb 9.9 L (12.0-15.0) g/dL Hct 32.8 L (37.2-46.3) % MCV 101.9 H (80.0-97.0) fL MCHC 30.2 L (32.0-37.0) g/dL RDW 14.6 H (11.5-14.5) % Neutrophils # (1.3-7.7) k/uL Chloride (98-107) mmol/L Carbon Dioxide 20.5 L (21.6-31.8) mmol/L Anion Gap 13.70 H (4.00-12.00) mmol/L BUN (7-17) mg/dL Creatinine (0.52-1.04) mg/dL Est GFR (CKD-EPI)AfAm 53.1 L (60.0-200.0) Est GFR (CKD-EPI)NonAf 45.8 L (60.0-200.0) Glucose 141 H (70-110) mg/dL POC Glucose (mg/dL) 149 H (75-99) mg/dL AST 264 H (13-35) U/L ALT 138 H (8-44) U/L Total Protein 5.6 L (6.2-8.2) g/dL Albumin 3.5 L (3.8-4.9) g/dL 01/21/21 01/21/21 01/22/21 Range/Units 17:54 21:16 07:22 WBC (4.50-10.00) X 10*3/uL RBC (4.10-5.20) X 10*6/uL Hgb (12.0-15.0) g/dL Hct (37.2-46.3) % MCV (80.0-97.0) fL MCHC (32.0-37.0) g/dL RDW (11.5-14.5) % Neutrophils # (1.3-7.7) k/uL Chloride (98-107) mmol/L Carbon Dioxide (21.6-31.8) mmol/L Anion Gap (4.00-12.00) mmol/L BUN (7-17) mg/dL Creatinine (0.52-1.04) mg/dL Est GFR (CKD-EPI)AfAm (60.0-200.0) Est GFR (CKD-EPI)NonAf (60.0-200.0) Glucose (70-110) mg/dL POC Glucose (mg/dL) 158 H 138 H 134 H (75-99) mg/dL AST (13-35) U/L ALT (8-44) U/L Total Protein (6.2-8.2) g/dL Albumin (3.8-4.9) g/dL 01/22/21 01/22/21 Range/Units 08:02 08:02 WBC 14.7 H (4.50-10.00) X 10*3/uL RBC 2.94 L (4.10-5.20) X 10*6/uL Hgb 9.4 L D (12.0-15.0) g/dL Hct 29.6 L (37.2-46.3) % MCV 100.5 H (80.0-97.0) fL MCHC (32.0-37.0) g/dL RDW (11.5-14.5) % Neutrophils # 11.9 H (1.3-7.7) k/uL Chloride 110 H (98-107) mmol/L Carbon Dioxide (21.6-31.8) mmol/L Anion Gap (4.00-12.00) mmol/L BUN 26 H (7-17) mg/dL Creatinine 1.07 H (0.52-1.04) mg/dL Est GFR (CKD-EPI)AfAm (60.0-200.0) Est GFR (CKD-EPI)NonAf (60.0-200.0) Glucose 104 H (70-110) mg/dL POC Glucose (mg/dL) (75-99) mg/dL AST 154 H (13-35) U/L ALT 153 H (8-44) U/L Total Protein 5.3 L (6.2-8.2) g/dL Albumin 2.7 L (3.8-4.9) g/dL Assessment and Plan Plan: Abdominal pain, suspected secondary to acute cholecystitis -Surgery following, surgery planned for monday. -Continue with IV fluids and IV antibiotics ceftriaxone and Flagyl -Hold the patient's Eliquis in anticipation of possible surgery CAD s/p 3 stents -Cardiology consulted for preoperative clearance Coronavirus PCR positive -The patient is currently denying SOB, fever, or chest pain -Not requiring supplemental oxygen at this time -The patient is vaccinated and had also received her booster shot Left lower lung soft tissue mass This was discussed with her daughter on the phone, she stated that a decision will be made regarding what to do with it after she is done with her current illness. Thrombocytosis -Possibly reactive -Monitor for now Chronic conditions: Type 2 DM, hypertension, hyperlipidemia -Continue home meds -A1c 5.9 -Hold oral hypoglycemics -Lispro insulin sliding scale and blood glucose monitoring DVT prophylaxis -Heparin subq CODE STATUS: Full Code Discussed with: Patient Anticipated discharge date: 2-[address]: Home
[2021-01-22 12:24] LABS: Glucose,Whole Blood 125 mg/dL (75-99)
[2021-01-22] MEDS: ASPIRIN 81 MG PO SCH (12:49)
--- NOTE | 2021-01-22 13:30 | CONS ---
CONSULTATION Mrs. Rodriguez is an 89-year-old female with a known history of chronic persistent atrial fibrillation, anticoagulated, history of coronary artery disease, status post percutaneous revascularization, according to her about a year or so ago done in [facility], who presented with nausea and vomiting and right upper quadrant discomfort. She underwent an abdominal CT on presentation that showed dilated gallbladder with no dilated duct. Subsequently she had a hepatobiliary scan that revealed evidence of acute cholecystitis. Cardiology consultation was requested for surgical intervention on Monday. Patient denies any chest discomfort. Her breathing is stable. She denies any dizziness or palpitations. She denies any PND or orthopnea. She has some occasional peripheral edema on the right side that has been chronic. She underwent an echocardiogram as an outpatient by her primary deputy commonwealth's attorney, Dr. Ennis, on November 30 that revealed a preserved left ventricular size and systolic function with mild to moderate aortic stenosis, moderate mitral and tricuspid regurgitation with moderate pulmonary hypertension. 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 Patient's level of activity is unchanged. She has no associated anginal pain. Her coronary risk factors are positive for history of diabetes, hypertension and hyperlipidemia. She is a nonsmoker. Her medications at home include Lipitor 40 mg daily, Plavix 75 mg daily, Norvasc 5 mg daily, Eliquis 5 mg twice a day, Lasix 40 mg daily, Neurontin, Apresoline 50 mg twice a day, metoprolol succinate 100 mg daily, Glucophage mg twice a day, calcium carbonate, iron, Myrbetriq, Claritin and tramadol on a p.r.n. basis. REVIEW OF SYSTEMS: RESPIRATORY SYSTEM: She has no recent wheezing or cough. She has no fever. She tested positive for COVID-19 but she has been vaccinated and has taken the third shot recently. GI SYSTEM: She had nausea or vomiting and the abdominal pain. No GI bleeding. SYSTEM: No dysuria or hematuria. NERVOUS SYSTEM: No history of stroke or seizure. PHYSICAL EXAMINATION: She is an 89-year-old female, alert, oriented, in no apparent distress. Blood pressure running in the 120s with a heart rate in the 70s. Afebrile. HEAD: Normocephalic. EYES: Sclerae anicteric. NECK: Good carotid upstroke. No bruit. No jugular venous distention. LUNGS: Clear to auscultation. HEART: Irregularly irregular. S1, S2. No S3. Systolic murmur heard at the base 2/6, ejection type. No diastolic murmur. No rub. ABDOMEN: Soft, nontender. Positive bowel sounds. No organomegaly. EXTREMITIES: No edema. Intact distal pulses. LAB DATA: BUN and creatinine of 26 and 1.07. Her AST is 154, ALT 153. Her white blood cell count is 14.7. It was up to 24.8 yesterday. Her hemoglobin is 9.4. Her troponin on presentation was less than 0.012. Her EKG revealed atrial fibrillation with normal axis and intervals and evidence to suggest anteroapical infarct. IMPRESSION: 1. Acute cholecystitis; being evaluated for surgical intervention on Monday. 2. Chronic persistent atrial fibrillation, rate controlled. 3. Prior history of coronary artery disease with stenting. 4. Mild to moderate aortic stenosis. 5. Hypertension. 6. Hyperlipidemia. 7. Diabetes mellitus. RECOMMENDATIONS: From the cardiac standpoint, the patient had no evidence to suggest recurrent angina pectoris. She should be stable to proceed with her surgical intervention. Her Plavix and her Eliquis are on hold. Because of the history of stenting, I will re-initiate treatment with aspirin 81 mg daily. Once surgical intervention is done, then I would recommend to re-initiate treatment with Eliquis. She will need to have review of her records to see how old her stent is. If it is over a year, then probably she can stay on the aspirin and stop the Plavix. She can follow up with her primary deputy commonwealth's attorney in that regard. Thank you for this consult. Will follow with you. MMODL / IJN: [id number] /
--- NOTE | 2021-01-22 15:04 | P.PN ---
Subjective Progress Note Date: 01/22/21 CHIEF COMPLAINT: Dental pain HISTORY OF PRESENT ILLNESS: Sudden 89-year-old female who presented to the emergency department with complaints of abdominal pain mostly in the right upper quadrant. On admission she had a CT of the abdomen and pelvis that showed moderate arthrosclerotic vascular disease with mild sigmoid diverticulosis. Interstitial infiltrates and atelectasis both lower lobes with cardiomegaly. Dilated gallbladder suggestive of gallbladder dysfunction or cholecystitis. With no dilated ducts. Yesterday afternoon she underwent a HIDA scan with findings consistent with acute cholecystitis. He should has been afebrile for greater than 24 hours. Today's labs WBC 14.7 hemoglobin 9.4. She remains on ceftriaxone and Flagyl.. Patient today has mild discomfort with palpation otherwise she denies any nausea or vomiting. Mild tenderness. PHYSICAL EXAM: VITAL SIGNS: Reviewed GENERAL: Well-developed in no acute distress. HEENT: No sclera icterus. Extraocular movements grossly intact. Moist buccal mucosa. Head is atraumatic, normocephalic. Hears conversational speech. No nasal drainage. NECK: Supple without lymphadenopathy. CHEST: Non-labored respirations and equal bilateral excursions. CARDIOVASCULAR: Palpable 2+ radial pulses. ABDOMEN: Soft. Nondistended. Nontender. MUSCULOSKELETAL: No clubbing or cyanosis. NEUROLOGIC: No focal or lateralizing signs. Cranial nerves II through XII grossly intact. PSYCH: Appropriate affect. Alert and oriented to person, place and time. SKIN: Well perfused. Good skin turgor. ASSESSMENT: 1. Acute cholecystitis 2. Leukocytosis 3. Humphrey virus PCR positive 4. Atrial fibrillation on Eliquis 5. Diabetes mellitus 6. Hypertension PLAN: 1. Continue to hold Eliquis and Plavix 2. Continue IV antibiotics 3. Patient may have low-fat diet 4. Cardiology consulted for cardiac clearance 5. Patient tentatively scheduled for robotic cholecystectomy on 01/25/2021 The impression and plan of care has been dictated as directed. Dr. Hooks I performed a history and examination of this patient, discussed the same with the dictator. I agree with the dictator's note ,documented as a scribe. Any additional findings or plans will be noted. Objective - Vital Signs Vital signs: Vital Signs Temp 98.2 F 01/22/21 07:00 Pulse 77 01/22/21 07:00 Resp 18 01/22/21 07:00 BP 126/69 01/22/21 07:00 Pulse Ox 97 01/22/21 07:00 Intake & Output 01/21/21 01/22/21 01/22/21 18:59 06:59 18:59 Intake Total 50 100 Output Total 0 Balance 50 0 100 Intake: Oral 50 100 Output: Emesis 0 Other: Voiding Method External Catheter External Catheter Diaper - Labs CBC & Chem 7: 01/22/21 08:02 01/22/21 08:02 Labs: Abnormal Lab Results - Last 24 Hours (Table) 01/21/21 01/21/21 01/22/21 Range/Units 17:54 21:16 07:22 WBC (3.8-10.6) k/uL RBC (3.80-5.40) m/uL Hgb (11.4-16.0) gm/dL Hct (34.0-46.0) % MCV (80.0-100.0) fL Neutrophils # (1.3-7.7) k/uL Chloride (98-107) mmol/L BUN (7-17) mg/dL Creatinine (0.52-1.04) mg/dL Glucose (74-99) mg/dL POC Glucose (mg/dL) 158 H 138 H 134 H (75-99) mg/dL AST (14-36) U/L ALT (4-34) U/L Total Protein (6.3-8.2) g/dL Albumin (3.5-5.0) g/dL 01/22/21 01/22/21 01/22/21 Range/Units 08:02 08:02 12:22 WBC 14.7 H (3.8-10.6) k/uL RBC 2.94 L (3.80-5.40) m/uL Hgb 9.4 L D (11.4-16.0) gm/dL Hct 29.6 L (34.0-46.0) % MCV 100.5 H (80.0-100.0) fL Neutrophils # 11.9 H (1.3-7.7) k/uL Chloride 110 H (98-107) mmol/L BUN 26 H (7-17) mg/dL Creatinine 1.07 H (0.52-1.04) mg/dL Glucose 104 H (74-99) mg/dL POC Glucose (mg/dL) 125 H (75-99) mg/dL AST 154 H (14-36) U/L ALT 153 H (4-34) U/L Total Protein 5.3 L (6.3-8.2) g/dL Albumin 2.7 L (3.5-5.0) g/dL
[2021-01-22 17:13] LABS: Glucose,Whole Blood 132 mg/dL (75-99)
[2021-01-22 19:28] LABS: Glucose,Whole Blood 187 mg/dL (75-99)
[2021-01-22] MEDS: ACETAMINOPHEN TAB 325 MG TAB PO PRN (19:30)
[2021-01-22] MEDS: ONDANSETRON 4 MG/2 ML VIAL IVP PRN (19:31)
[2021-01-22] MEDS: LATANOPROST 0.005% OPHTH DROPS 2.5 ML BTL BOTH EYES SCH (20:21)
[2021-01-22] MEDS: ATORVASTATIN 40 MG TAB PO SCH (20:21)
[2021-01-22] MEDS: SODIUM CHLORIDE 0.9% 1,000 ML IV SCH (20:22)
[2021-01-22 23:18] LABS: Glucose,Whole Blood 127 mg/dL (75-99)
[2021-01-23] MEDS: SODIUM CHLORIDE 0.9% 1,000 ML IV SCH ×2 (01:09→12:16)
[2021-01-23] MEDS: metroNIDAZOLE-NS PMX 500 MG in SALINE 1 100ML.BAG IVPB SCH ×3 (04:47→20:05)
[2021-01-23 07:46] LABS: Glucose,Whole Blood 110 mg/dL (75-99)
[2021-01-23] MEDS: INSULIN ASPART (NovoLOG) 100 UNIT/ML VIAL SQ SCH ×4 (07:56→22:06)
[2021-01-23] MEDS: ASPIRIN 81 MG PO SCH (08:08)
[2021-01-23] MEDS: hydrALAZINE HCL 50 MG TAB PO SCH ×2 (08:08→20:04)
[2021-01-23] MEDS: METOPROLOL SUCCINATE (ER) 100 MG TAB.ER.24H PO SCH (08:08)
[2021-01-23] MEDS: FAMOTIDINE 20 MG TAB PO SCH (08:08)
[2021-01-23] MEDS: POTASSIUM CHLORIDE ER 20 MEQ TAB.ER PO SCH (08:08)
[2021-01-23] MEDS: GABAPENTIN 300 MG CAP PO SCH ×2 (08:08→20:04)
[2021-01-23] MEDS: amLODIPine 5 MG TAB PO SCH (08:08)
--- NOTE | 2021-01-23 11:19 | P.PN ---
Subjective Progress Note Date: 01/23/21 Principal diagnosis: Cholecystitis Patient doing well today. No significant pain. Denies nausea vomiting. She is afebrile. Labs noted. Objective - Vital Signs Vital signs: Vital Signs Temp 97.5 F L 01/23/21 07:00 Pulse 75 01/23/21 07:00 Resp 16 01/23/21 08:00 BP 128/72 01/23/21 07:00 Pulse Ox 98 01/23/21 07:00 Intake & Output 01/22/21 01/23/21 01/23/21 18:59 06:59 18:59 Intake Total 100 200 240 Balance 100 200 240 Intake: Oral 100 200 240 Other: Voiding Method Diaper Toilet Toilet # Voids 1 1 1 - Exam Abdomen: Soft, mild epigastric tenderness, no rebound or guarding - Labs CBC & Chem 7: 01/22/21 08:02 01/22/21 08:02 Labs: Abnormal Lab Results - Last 24 Hours (Table) 01/22/21 01/22/21 01/22/21 Range/Units 12:22 17:12 19:26 POC Glucose (mg/dL) 125 H 132 H 187 H (75-99) mg/dL 01/22/21 01/23/21 Range/Units 23:12 07:45 POC Glucose (mg/dL) 127 H 110 H (75-99) mg/dL Microbiology - Last 24 Hours (Table) 01/21/21 19:00 Blood Culture - Preliminary Blood No Growth after 24 hours Assessment and Plan (1) Acute cholecystitis Narrative/Plan: 89-year-old female with acute cholecystitis. Continue antibiotics. Continue to hold anticoagulation. Patient will be scheduled for laparoscopic cholecystectomy Monday. Current Visit: Yes Status: Acute Code(s): K81.0 - ACUTE CHOLECYSTITIS SNOMED Code(s): 44273639
--- NOTE | 2021-01-23 11:46 | P.PN ---
Subjective Progress Note Date: 01/23/21 Patient seen and examined at bedside. Patient denies chest pain, shortness of breath, nausea, vomiting, fever, or chills. Patient does admit to abdominal pain and tenderness. Vitals are within normal limits. Objective - Vital Signs Vital signs: Vital Signs Temp 97.5 F L 01/23/21 07:00 Pulse 75 01/23/21 07:00 Resp 16 01/23/21 08:00 BP 128/72 01/23/21 07:00 Pulse Ox 98 01/23/21 07:00 Intake & Output 01/22/21 01/23/21 01/23/21 18:59 06:59 18:59 Intake Total 100 200 240 Balance 100 200 240 Intake: Oral 100 200 240 Other: Voiding Method Diaper Toilet Toilet # Voids 1 1 1 - Exam General: [non toxic], [no distress], [appears at stated age] Derm: [warm], [dry] Head: [atraumatic], [normocephalic], [symmetric] Eyes: [EOMI], [no lid lag], [anicteric sclera] Mouth: [no lip lesion], [mucus membranes moist] Cardiovascular: [S1S2 reg], [no murmur], [positive posterior tibial pulse bilateral], Lungs: [CTA bilateral], [no rhonchi, no rales] , [no accessory muscle use] Abdominal: [soft], [ TENDER to palpation with rebound], [no guarding], [no appreciable organomegaly] Ext: [no gross muscle atrophy], [no edema], [no contractures] Neuro: [ CN II-XI grossly intact], [no focal neuro deficits] Psych: [Alert], [oriented], [appropriate affect] - Labs CBC & Chem 7: 01/22/21 08:02 01/22/21 08:02 Labs: Abnormal Lab Results - Last 24 Hours (Table) 01/22/21 01/22/21 01/22/21 Range/Units 12:22 17:12 19:26 POC Glucose (mg/dL) 125 H 132 H 187 H (75-99) mg/dL 01/22/21 01/23/21 Range/Units 23:12 07:45 POC Glucose (mg/dL) 127 H 110 H (75-99) mg/dL Microbiology - Last 24 Hours (Table) 01/21/21 19:00 Blood Culture - Preliminary Blood No Growth after 24 hours Assessment and Plan Assessment: Abdominal pain, suspected secondary to acute cholecystitis -Surgery following, surgery planned for monday. -Continue with IV fluids and IV antibiotics ceftriaxone and Flagyl -Hold the patient's Eliquis in anticipation of surgery CAD s/p 3 stents -Cardiology consulted for preoperative clearance Coronavirus PCR positive -The patient is currently denying SOB, fever, or chest pain -Not requiring supplemental oxygen at this time -The patient is vaccinated and had also received her booster shot Left lower lung soft tissue mass This was discussed with her daughter on the phone, she stated that a decision will be made regarding what to do with it after she is done with her current illness. Thrombocytosis -Possibly reactive -Monitor for now Chronic conditions: Type 2 DM, hypertension, hyperlipidemia -Continue home meds -A1c 5.9 -Hold oral hypoglycemics -Lispro insulin sliding scale and blood glucose monitoring DVT prophylaxis -Heparin subq CODE STATUS: Full Code Discussed with: Patient Anticipated discharge date: 2-[address]: Home
[2021-01-23 13:53] LABS: Basophils # (A) 0.07 X 10*3/uL (0.00-0.10); Basophils % (A) 0.7 %; Eosinophils # (A) 0.31 X 10*3/uL (0.04-0.35); Eosinophils % (A) 3.1 %; HCT 28.4 % (37.2-46.3); HGB 8.6 g/dL (12.0-15.0); Lymphocytes # (A) 1.48 X 10*3/uL (0.90-5.00); Lymphocytes % (A) 14.9 %; MCHC 30.3 g/dL (32.0-37.0); Mean Platelet Volume 10.5 fL (9.5-12.2); Monocytes # (A) 1.26 X 10*3/uL (0.20-1.00); Monocytes % (A) 12.7 %; Neutrophils # (A) 6.74 X 10*3/uL (1.80-7.70); Neutrophils % (A) 68.1 %; Platelet Count 334 X 10*3/uL (140-440); RBC 2.87 X 10*6/uL (4.10-5.20); RDW 15.2 % (11.5-14.5); WBC 9.91 X 10*3/uL (4.50-10.00)
[2021-01-23 13:54] LABS: Magnesium 1.9 mg/dL (1.5-2.4); Phosphorus 2.2 mg/dL (2.4-5.1)
[2021-01-23 14:23] LABS: African American GFR (CKD) 76.3 (60.0-200.0); Albumin/Globulin Ratio 1.43 (1.60-3.17); Anion Gap 8.8 mmol/L (4.00-12.00); Blood Urea Nitrogen 20.8 mg/dL (9.0-27.0); Calcium 8.5 mg/dL (8.7-10.3); Carbon Dioxide 20.2 mmol/L (21.6-31.8); Globulin 2.1 g/dL (1.6-3.3); Non-African American GFR(CKD) 65.8 (60.0-200.0); Potassium 4.2 mmol/L (3.5-5.5); Total Bilirubin 0.3 mg/dL (0.30-1.20); Total Protein 5.1 g/dL (6.2-8.2)
--- NOTE | 2021-01-23 14:39 | P.PN ---
Subjective Progress Note Date: 01/23/21 HISTORY OF PRESENT ILLNESS This is an 89-year-old female patient follows with credit processor Dr. 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 Last echocardiogram in November of this year revealed preserved left ventricle size and systolic function with mild to moderate aortic stenosis, moderate mitral and tricuspid regurgitation with moderate pulmonary hypertension. Patient presented to the hospital with complaints of abdominal pain in the right upper quadrant and found on CAT scan to have a dilated gallbladder with no dilated duct. HIDA scan revealed evidence of acute cholecystitis. Plan is for surgical intervention on Monday with cardiology clearance. Patient has positive for: 19 but has been vaccinated and received booster. Her vital signs have been stable. No concerns from her nurse. PHYSICAL EXAMINATION Examination deferred due to COVID 19 isolation ASSESSMENT Acute cholecystitis with plan for surgical intervention on Monday Chronic persistent atrial fibrillation, rate controlled History of coronary artery disease with stenting Mild to moderate aortic stenosis Hypertension Hyperlipidemia Diabetes mellitus type 2 PLAN Patient has been cleared by cardiology for surgical intervention scheduled for Monday. Hold Plavix and eliquis and for now patient will be on aspirin 81 mg daily. Once surgical intervention is completed, recommend reinitiation of eliquis. Records from [facility] [place] has been requested to determine timeframe of her cardiac stent If cardiac stent is greater than 1 year, patient will stay on aspirin and stop Plavix. Follow-up with primary credit processor in 1-2 weeks following discharge from the hospital. Further recommendations to follow based upon clinical course Thank you kindly for this consultation. Nurse practitioner note has been reviewed, I agree with documented findings and plan of care. Patient was seen and examined. Objective - Vital Signs Vital signs: Vital Signs Temp 97.5 F L 01/23/21 07:00 Pulse 75 01/23/21 07:00 Resp 16 01/23/21 08:00 BP 128/72 01/23/21 07:00 Pulse Ox 98 01/23/21 07:00 Intake & Output 01/22/21 01/23/21 01/23/21 18:59 06:59 18:59 Intake Total 100 200 240 Balance 100 200 240 Intake: Oral 100 200 240 Other: Voiding Method Diaper Toilet Toilet # Voids 1 1 1 - Labs CBC & Chem 7: 01/23/21 06:06 01/23/21 06:06 Labs: Abnormal Lab Results - Last 24 Hours (Table) 01/22/21 01/22/21 01/22/21 Range/Units 12:22 17:12 19:26 POC Glucose (mg/dL) 125 H 132 H 187 H (75-99) mg/dL 01/22/21 01/23/21 Range/Units 23:12 07:45 POC Glucose (mg/dL) 127 H 110 H (75-99) mg/dL Microbiology - Last 24 Hours (Table) 01/21/21 19:00 Blood Culture - Preliminary Blood No Growth after 24 hours
[2021-01-23 18:01] LABS: Glucose,Whole Blood 159 mg/dL (75-99)
[2021-01-23] MEDS: ACETAMINOPHEN TAB 325 MG TAB PO PRN (20:04)
[2021-01-23] MEDS: ATORVASTATIN 40 MG TAB PO SCH (20:04)
[2021-01-23] MEDS: LATANOPROST 0.005% OPHTH DROPS 2.5 ML BTL BOTH EYES SCH (20:05)
[2021-01-23 20:22] LABS: Glucose,Whole Blood 169 mg/dL (75-99)
[2021-01-23 22:05] LABS: Glucose,Whole Blood 140 mg/dL (75-99)
[2021-01-24] MEDS: SODIUM CHLORIDE 0.9% 1,000 ML IV SCH ×2 (02:39→13:45)
[2021-01-24] MEDS: metroNIDAZOLE-NS PMX 500 MG in SALINE 1 100ML.BAG IVPB SCH ×3 (04:04→20:36)
[2021-01-24] MEDS: ONDANSETRON 4 MG/2 ML VIAL IVP PRN ×2 (04:39→18:13)
[2021-01-24 07:40] LABS: Glucose,Whole Blood 108 mg/dL (75-99)
[2021-01-24] MEDS: INSULIN ASPART (NovoLOG) 100 UNIT/ML VIAL SQ SCH ×4 (07:42→20:40)
[2021-01-24] MEDS: GABAPENTIN 300 MG CAP PO SCH ×2 (07:43→20:32)
[2021-01-24] MEDS: amLODIPine 5 MG TAB PO SCH (07:43)
[2021-01-24] MEDS: ASPIRIN 81 MG PO SCH (07:43)
[2021-01-24] MEDS: POTASSIUM CHLORIDE ER 20 MEQ TAB.ER PO SCH (07:43)
[2021-01-24] MEDS: METOPROLOL SUCCINATE (ER) 100 MG TAB.ER.24H PO SCH (07:43)
[2021-01-24] MEDS: FAMOTIDINE 20 MG TAB PO SCH (07:43)
[2021-01-24] MEDS: hydrALAZINE HCL 50 MG TAB PO SCH ×2 (07:43→20:45)
[2021-01-24 09:00] LABS: Basophils # (A) 0.07 X 10*3/uL (0.00-0.10); Basophils % (A) 0.8 %; Eosinophils # (A) 0.27 X 10*3/uL (0.04-0.35); Eosinophils % (A) 3.2 %; HGB 8.8 g/dL (12.0-15.0); Lymphocytes # (A) 1.38 X 10*3/uL (0.90-5.00); Lymphocytes % (A) 16.4 %; MCH 30.4 pg (27.0-32.0); MCHC 30.3 g/dL (32.0-37.0); MCV 100.3 fL (80.0-97.0); Mean Platelet Volume 10.5 fL (9.5-12.2); Monocytes # (A) 0.94 X 10*3/uL (0.20-1.00); Monocytes % (A) 11.2 %; Neutrophils # (A) 5.73 X 10*3/uL (1.80-7.70); Platelet Count 343 X 10*3/uL (140-440); RBC 2.89 X 10*6/uL (4.10-5.20); RDW 15.1 % (11.5-14.5); WBC 8.42 X 10*3/uL (4.50-10.00)
[2021-01-24 09:26] LABS: African American GFR (CKD) 89.7 (60.0-200.0); Albumin/Globulin Ratio 1.5 (1.60-3.17); Anion Gap 9.5 mmol/L (4.00-12.00); BUN/Creat Ratio 20.86 Ratio (12.00-20.00); Blood Urea Nitrogen 14.6 mg/dL (9.0-27.0); Calcium 8.2 mg/dL (8.7-10.3); Carbon Dioxide 19.5 mmol/L (21.6-31.8); Non-African American GFR(CKD) 77.4 (60.0-200.0); Potassium 4.3 mmol/L (3.5-5.5); Total Bilirubin 0.2 mg/dL (0.30-1.20)
--- NOTE | 2021-01-24 09:27 | P.PN ---
Subjective Patient seen and examined at bedside while eating breakfast. Patient denies chest pain, shortness of breath, nausea, vomiting, fever, or chills. Patient does admit to abdominal pain and tenderness with palpation. Vitals are within normal limits. Surgery is scheduled for tomorrow. Objective - Vital Signs Vital signs: Vital Signs Temp 98 F 01/24/21 08:00 Pulse 72 01/24/21 08:00 Resp 16 01/24/21 08:00 BP 148/75 01/24/21 08:00 Pulse Ox 99 01/24/21 08:00 Intake & Output 01/23/21 01/24/21 01/24/21 18:59 06:59 18:59 Intake Total 1330 300 Balance 1330 300 Intake: IV 850 Sodium Chloride 0.9% 1, 700 000 ml @ 75 mls/hr IV . [id number] [facility] Rx#:[id number] cefTRIAXone 2 gm In 50 Sodium Chloride 0.9% 50 ml @ 100 mls/hr IVPB Q24H [facility] Rx#:[id number] metroNIDAZOLE-NS PMX 500 100 mg In Saline 1 100ml.bag @ 100 mls/hr IVPB Q8H [facility] Rx#:[id number] Oral 480 300 Other: Voiding Method Toilet Toilet Toilet # Voids 1 1 # Bowel Movements 1 - Exam General: [non toxic], [no distress], [appears at stated age] Derm: [warm], [dry] Head: [atraumatic], [normocephalic], [symmetric] Eyes: [EOMI], [no lid lag], [anicteric sclera] Mouth: [no lip lesion], [mucus membranes moist] Cardiovascular: [S1S2 reg], [no murmur], [positive posterior tibial pulse bilateral], Lungs: [CTA bilateral], [no rhonchi, no rales] , [no accessory muscle use] Abdominal: [soft], [ TENDER to palpation with rebound], [no guarding], [no appreciable organomegaly] Ext: [no gross muscle atrophy], [no edema], [no contractures] Neuro: [ CN II-XI grossly intact], [no focal neuro deficits] Psych: [Alert], [oriented], [appropriate affect.] - Labs CBC & Chem 7: 01/24/21 06:03 01/23/21 06:06 Labs: Abnormal Lab Results - Last 24 Hours (Table) 01/23/21 01/23/21 01/23/21 Range/Units 06:06 06:06 17:56 RBC 2.87 L (4.10-5.20) X 10*6/uL Hgb 8.6 L (12.0-15.0) g/dL Hct 28.4 L (37.2-46.3) % MCV 99.0 H (80.0-97.0) fL MCHC 30.3 L (32.0-37.0) g/dL RDW 15.2 H (11.5-14.5) % Immature Gran # 0.05 H (0.00-0.04) X 10*3/uL Monocytes # 1.26 H (0.20-1.00) X 10*3/uL Chloride 111 H (96-109) mmol/L Carbon Dioxide 20.2 L (21.6-31.8) mmol/L BUN/Creatinine Ratio 26.00 H (12.00-20.00) Ratio POC Glucose (mg/dL) 159 H (75-99) mg/dL Calcium 8.5 L (8.7-10.3) mg/dL Phosphorus 2.2 L (2.4-5.1) mg/dL AST 73 H (13-35) U/L ALT 110 H (8-44) U/L Alkaline Phosphatase 131 H (41-126) U/L Total Protein 5.1 L (6.2-8.2) g/dL Albumin 3.0 L (3.8-4.9) g/dL Albumin/Globulin Ratio 1.43 L (1.60-3.17) g/dL 01/23/21 01/23/21 01/24/21 Range/Units 20:20 22:03 06:03 RBC 2.89 L (4.10-5.20) X 10*6/uL Hgb 8.8 L (12.0-15.0) g/dL Hct 29.0 L (37.2-46.3) % MCV 100.3 H (80.0-97.0) fL MCHC 30.3 L (32.0-37.0) g/dL RDW 15.1 H (11.5-14.5) % Immature Gran # (0.00-0.04) X 10*3/uL Monocytes # (0.20-1.00) X 10*3/uL Chloride (96-109) mmol/L Carbon Dioxide (21.6-31.8) mmol/L BUN/Creatinine Ratio (12.00-20.00) Ratio POC Glucose (mg/dL) 169 H 140 H (75-99) mg/dL Calcium (8.7-10.3) mg/dL Phosphorus (2.4-5.1) mg/dL AST (13-35) U/L ALT (8-44) U/L Alkaline Phosphatase (41-126) U/L Total Protein (6.2-8.2) g/dL Albumin (3.8-4.9) g/dL Albumin/Globulin Ratio (1.60-3.17) g/dL 01/24/21 Range/Units 07:31 RBC (4.10-5.20) X 10*6/uL Hgb (12.0-15.0) g/dL Hct (37.2-46.3) % MCV (80.0-97.0) fL MCHC (32.0-37.0) g/dL RDW (11.5-14.5) % Immature Gran # (0.00-0.04) X 10*3/uL Monocytes # (0.20-1.00) X 10*3/uL Chloride (96-109) mmol/L Carbon Dioxide (21.6-31.8) mmol/L BUN/Creatinine Ratio (12.00-20.00) Ratio POC Glucose (mg/dL) 108 H (75-99) mg/dL Calcium (8.7-10.3) mg/dL Phosphorus (2.4-5.1) mg/dL AST (13-35) U/L ALT (8-44) U/L Alkaline Phosphatase (41-126) U/L Total Protein (6.2-8.2) g/dL Albumin (3.8-4.9) g/dL Albumin/Globulin Ratio (1.60-3.17) g/dL Microbiology - Last 24 Hours (Table) 01/21/21 19:00 Blood Culture - Preliminary Blood No Growth after 48 hours Assessment and Plan Assessment: Abdominal pain, secondary to acute cholecystitis -Surgery following, surgery planned for Monday. -Continue with IV fluids and IV antibiotics ceftriaxone and Flagyl -Hold the patient's Eliquis in anticipation of surgery CAD s/p 3 stents -Cardiology consulted for preoperative clearance Coronavirus PCR positive -The patient is currently denying SOB, fever, or chest pain -Not requiring supplemental oxygen at this time -The patient is vaccinated and had also received her booster shot Left lower lung soft tissue mass This was discussed with her daughter on the phone, she stated that a decision will be made regarding what to do with it after she is done with her current illness. Thrombocytosis -Possibly reactive -Monitor for now Chronic conditions: Type 2 DM, hypertension, hyperlipidemia -Continue home meds -A1c 5.9 -Hold oral hypoglycemics -Lispro insulin sliding scale and blood glucose monitoring DVT prophylaxis -Heparin subq CODE STATUS: Full Code Discussed with: Patient Anticipated discharge date: 2-[address]: Home
--- NOTE | 2021-01-24 12:10 | P.PN ---
Subjective Progress Note Date: 01/24/21 Principal diagnosis: Cholecystitis Patient feels tired today. Denies abdominal pain. Transaminases improved, alkaline phosphatase increased slightly. White blood cell count normal. Objective - Vital Signs Vital signs: Vital Signs Temp 98 F 01/24/21 08:00 Pulse 72 01/24/21 08:00 Resp 16 01/24/21 08:00 BP 148/75 01/24/21 08:00 Pulse Ox 99 01/24/21 08:00 Intake & Output 01/23/21 01/24/21 01/24/21 18:59 06:59 18:59 Intake Total 1330 300 Balance 1330 300 Intake: IV 850 Sodium Chloride 0.9% 1, 700 000 ml @ 75 mls/hr IV . [id number] [facility] Rx#:[id number] cefTRIAXone 2 gm In 50 Sodium Chloride 0.9% 50 ml @ 100 mls/hr IVPB Q24H [facility] Rx#:[id number] metroNIDAZOLE-NS PMX 500 100 mg In Saline 1 100ml.bag @ 100 mls/hr IVPB Q8H [facility] Rx#:[id number] Oral 480 300 Other: Voiding Method Toilet Toilet Toilet # Voids 1 1 1 # Bowel Movements 1 - Exam Abdomen: Soft, nondistended, mild epigastric tenderness - Labs CBC & Chem 7: 01/24/21 06:03 01/24/21 06:03 Labs: Abnormal Lab Results - Last 24 Hours (Table) 01/23/21 01/23/21 01/23/21 Range/Units 06:06 06:06 17:56 RBC 2.87 L (4.10-5.20) X 10*6/uL Hgb 8.6 L (12.0-15.0) g/dL Hct 28.4 L (37.2-46.3) % MCV 99.0 H (80.0-97.0) fL MCHC 30.3 L (32.0-37.0) g/dL RDW 15.2 H (11.5-14.5) % Immature Gran # 0.05 H (0.00-0.04) X 10*3/uL Monocytes # 1.26 H (0.20-1.00) X 10*3/uL Chloride 111 H (96-109) mmol/L Carbon Dioxide 20.2 L (21.6-31.8) mmol/L BUN/Creatinine Ratio 26.00 H (12.00-20.00) Ratio POC Glucose (mg/dL) 159 H (75-99) mg/dL Calcium 8.5 L (8.7-10.3) mg/dL Phosphorus 2.2 L (2.4-5.1) mg/dL Total Bilirubin (0.30-1.20) mg/dL AST 73 H (13-35) U/L ALT 110 H (8-44) U/L Alkaline Phosphatase 131 H (41-126) U/L Total Protein 5.1 L (6.2-8.2) g/dL Albumin 3.0 L (3.8-4.9) g/dL Albumin/Globulin Ratio 1.43 L (1.60-3.17) g/dL 01/23/21 01/23/21 01/24/21 Range/Units 20:20 22:03 06:03 RBC 2.89 L (4.10-5.20) X 10*6/uL Hgb 8.8 L (12.0-15.0) g/dL Hct 29.0 L (37.2-46.3) % MCV 100.3 H (80.0-97.0) fL MCHC 30.3 L (32.0-37.0) g/dL RDW 15.1 H (11.5-14.5) % Immature Gran # (0.00-0.04) X 10*3/uL Monocytes # (0.20-1.00) X 10*3/uL Chloride (96-109) mmol/L Carbon Dioxide (21.6-31.8) mmol/L BUN/Creatinine Ratio (12.00-20.00) Ratio POC Glucose (mg/dL) 169 H 140 H (75-99) mg/dL Calcium (8.7-10.3) mg/dL Phosphorus (2.4-5.1) mg/dL Total Bilirubin (0.30-1.20) mg/dL AST (13-35) U/L ALT (8-44) U/L Alkaline Phosphatase (41-126) U/L Total Protein (6.2-8.2) g/dL Albumin (3.8-4.9) g/dL Albumin/Globulin Ratio (1.60-3.17) g/dL 01/24/21 01/24/21 Range/Units 06:03 07:31 RBC (4.10-5.20) X 10*6/uL Hgb (12.0-15.0) g/dL Hct (37.2-46.3) % MCV (80.0-97.0) fL MCHC (32.0-37.0) g/dL RDW (11.5-14.5) % Immature Gran # (0.00-0.04) X 10*3/uL Monocytes # (0.20-1.00) X 10*3/uL Chloride 114 H (96-109) mmol/L Carbon Dioxide 19.5 L (21.6-31.8) mmol/L BUN/Creatinine Ratio 20.86 H (12.00-20.00) Ratio POC Glucose (mg/dL) 108 H (75-99) mg/dL Calcium 8.2 L (8.7-10.3) mg/dL Phosphorus (2.4-5.1) mg/dL Total Bilirubin 0.20 L (0.30-1.20) mg/dL AST 60 H (13-35) U/L ALT 89 H (8-44) U/L Alkaline Phosphatase 161 H (41-126) U/L Total Protein 5.0 L (6.2-8.2) g/dL Albumin 3.0 L (3.8-4.9) g/dL Albumin/Globulin Ratio 1.50 L (1.60-3.17) g/dL Microbiology - Last 24 Hours (Table) 01/21/21 19:00 Blood Culture - Preliminary Blood No Growth after 48 hours Assessment and Plan (1) Acute cholecystitis Narrative/Plan: Excision doing well today. Repeat labs tomorrow. Nothing by mouth after midnight for possible cholecystectomy tomorrow. Current Visit: Yes Status: Acute Code(s): K81.0 - ACUTE CHOLECYSTITIS SNOMED Code(s): 61785585
[2021-01-24 12:18] LABS: Glucose,Whole Blood 146 mg/dL (75-99)
[2021-01-24 17:31] LABS: Glucose,Whole Blood 138 mg/dL (75-99)
[2021-01-24 20:32] LABS: Glucose,Whole Blood 110 mg/dL (75-99)
[2021-01-24] MEDS: ATORVASTATIN 40 MG TAB PO SCH (20:32)
[2021-01-24] MEDS: ACETAMINOPHEN TAB 325 MG TAB PO PRN (20:32)
[2021-01-24] MEDS: LATANOPROST 0.005% OPHTH DROPS 2.5 ML BTL BOTH EYES SCH (20:47)
[2021-01-25] MEDS: metroNIDAZOLE-NS PMX 500 MG in SALINE 1 100ML.BAG IVPB SCH ×3 (04:48→19:09)
[2021-01-25] MEDS: SODIUM CHLORIDE 0.9% 1,000 ML IV SCH ×2 (04:48→18:05)
[2021-01-25 06:13] LABS: HCT 30.6 % (34.0-46.0); HGB 9.4 gm/dL (11.4-16.0); Hypochromasia Moderate; MCH 31.4 pg (25.0-35.0); MCHC 30.8 g/dL (31.0-37.0); MCV 101.8 fL (80.0-100.0); Macrocytosis Slight; Mean Platelet Volume 7.9; Platelet Count 337 k/uL (150-450); RDW 13.8 % (11.5-15.5)
[2021-01-25 06:30] LABS: ALT 65 U/L (4-34); AST 41 U/L (14-36); African American GFR (CKD) >90 (>60 ml/min/1.73 sqM); Albumin 2.6 g/dL (3.5-5.0); Alkaline Phosphatase 134 U/L (38-126); Anion Gap 5 mmol/L; Blood Urea Nitrogen 11 mg/dL (7-17); Calcium 8.3 mg/dL (8.4-10.2); Carbon Dioxide 20 mmol/L (22-30); Chloride 117 mmol/L (98-107); Globulin 2.7 g/dL; Glucose 108 mg/dL (74-99); Non-African American GFR(CKD) 83 (>60 ml/min/1.73 sqM); Potassium 4.7 mmol/L (3.5-5.1); Sodium 142 mmol/L (137-145); Total Bilirubin 0.3 mg/dL (0.2-1.3); Total Protein 5.3 g/dL (6.3-8.2)
[2021-01-25 06:49] LABS: Band Neutrophils % 2 %; Eosinophils # (M) 0.07 k/uL (0-0.7); Lymphocytes # (M) 1.66 k/uL (1.0-4.8); Monocytes # (M) 0.97 k/uL (0-1.0); Neutrophils % (M) 59 %; Nucleated Red Blood Cells 1 /100 WBC (0-0); Total Cells Counted 200; WBC 6.9 k/uL (3.8-10.6)
[2021-01-25 06:51] LABS: Anisocytosis (M) Present; Poikilocytosis (M) Present
[2021-01-25 07:03] LABS: Glucose,Whole Blood 92 mg/dL (75-99)
[2021-01-25] MEDS: INSULIN ASPART (NovoLOG) 100 UNIT/ML VIAL SQ SCH ×4 (07:14→20:44)
[2021-01-25] MEDS: ASPIRIN 81 MG PO SCH (08:08)
[2021-01-25] MEDS: GABAPENTIN 300 MG CAP PO SCH ×2 (08:08→20:53)
[2021-01-25] MEDS: hydrALAZINE HCL 50 MG TAB PO SCH ×2 (08:08→20:53)
[2021-01-25] MEDS: amLODIPine 5 MG TAB PO SCH (08:08)
[2021-01-25] MEDS: FAMOTIDINE 20 MG TAB PO SCH ×2 (08:08→20:53)
[2021-01-25] MEDS: POTASSIUM CHLORIDE ER 20 MEQ TAB.ER PO SCH (08:08)
[2021-01-25] MEDS: METOPROLOL SUCCINATE (ER) 100 MG TAB.ER.24H PO SCH (08:08)
[2021-01-25] MEDS ORDERED: INDOCYANINE GREEN 25 MG VIAL IV STA (08:47)
--- NOTE | 2021-01-25 11:07 | P.PN ---
Subjective Progress Note Date: 01/25/21 CHIEF COMPLAINT: Acute hydrops cholecystitis HISTORY OF PRESENT ILLNESS: The patient is a 89-year-old female with acute cholecystitis with sepsis. She was seen by cardiology for cardiac risk assessme nt. Outside echo demonstrated preserved left ventricular function. Patient has been off blood thinners including Plavix. She still reports right upper quadrant abdominal pain. ROS: No reports of nausea and vomiting. No fevers or chills. No new chest pain. No productive sputum PHYSICAL EXAM: VITAL SIGNS: Reviewed CONSTITUTIONAL: Well developed and in no acute distress. EYES: Conjuctivae without sclera icterus. Extraocular movements grossly intact. HEAD, EARS, NOSE, THROAT: Moist buccal mucosa. Head is atraumatic, normocephalic. Hears conversational speech. No nasal drainage. NECK: No gross thyroidomegaly. No jugular venous distention. RESPIRATORY: Non-labored respirations and equal bilateral excursions. CARDIOVASCULAR: Irregular rate. Irregular rhythm. ABDOMEN: Tender right upper quadrant. MUSCULOSKELETAL: No gross deformity of the lower extremities noted. No clubbing. No cyanosis. SKIN: Good skin turgor. Well perfused. NEUROLOGIC: Cranial nerves II through XII grossly intact. No focal or lateralizing signs. PSYCH: Appropriate affect. Alert and oriented to person, place and time. CLINICAL LABS: Reviewed. LFTs trending down. White blood cell count normal ASSESSMENT: 1. Acute hydrops cholecystitis with purulence PLAN: 1. Patient is elevated risk for the recent history of blood thinners including antiplatelet therapy. 2. With acute cholecystitis and sepsis will proceed with cholecystectomy. 3. All questions were addressed with patient who wished to proceed. Objective - Vital Signs Vital signs: Vital Signs Temp 97.3 F L 01/25/21 06:49 Pulse 82 01/25/21 06:49 Resp 16 01/25/21 06:49 BP 126/58 01/25/21 06:49 Pulse Ox 92 L 01/25/21 08:25 Intake & Output 01/24/21 01/25/21 01/25/21 18:59 06:59 18:59 Intake Total 750 Balance 750 Intake: IV 750 Sodium Chloride 0.9% 1, 600 000 ml @ 75 mls/hr IV . [id number] [facility] Rx#:[id number] cefTRIAXone 2 gm In 50 Sodium Chloride 0.9% 50 ml @ 100 mls/hr IVPB Q24H [facility] Rx#:[id number] metroNIDAZOLE-NS PMX 500 100 mg In Saline 1 100ml.bag @ 100 mls/hr IVPB Q8H [facility] Rx#:[id number] Other: Voiding Method Toilet Toilet # Voids 1 1 # Bowel Movements 1 - Labs CBC & Chem 7: 01/25/21 05:15 01/25/21 05:15 Labs: Abnormal Lab Results - Last 24 Hours (Table) 01/24/21 01/24/21 01/24/21 Range/Units 12:12 17:29 20:30 RBC (3.80-5.40) m/uL Hgb (11.4-16.0) gm/dL Hct (34.0-46.0) % MCV (80.0-100.0) fL MCHC (31.0-37.0) g/dL Nucleated RBCs (0-0) /100 WBC Chloride (98-107) mmol/L Carbon Dioxide (22-30) mmol/L Glucose (74-99) mg/dL POC Glucose (mg/dL) 146 H 138 H 110 H (75-99) mg/dL Calcium (8.4-10.2) mg/dL AST (14-36) U/L ALT (4-34) U/L Alkaline Phosphatase (38-126) U/L Total Protein (6.3-8.2) g/dL Albumin (3.5-5.0) g/dL 01/25/21 01/25/21 Range/Units 05:15 05:15 RBC 3.00 L (3.80-5.40) m/uL Hgb 9.4 L (11.4-16.0) gm/dL Hct 30.6 L (34.0-46.0) % MCV 101.8 H (80.0-100.0) fL MCHC 30.8 L (31.0-37.0) g/dL Nucleated RBCs 1 H (0-0) /100 WBC Chloride 117 H (98-107) mmol/L Carbon Dioxide 20 L (22-30) mmol/L Glucose 108 H (74-99) mg/dL POC Glucose (mg/dL) (75-99) mg/dL Calcium 8.3 L (8.4-10.2) mg/dL AST 41 H (14-36) U/L ALT 65 H (4-34) U/L Alkaline Phosphatase 134 H (38-126) U/L Total Protein 5.3 L (6.3-8.2) g/dL Albumin 2.6 L (3.5-5.0) g/dL Microbiology - Last 24 Hours (Table) 01/21/21 19:00 Blood Culture - Preliminary Blood No Growth after 72 hours Assessment and Plan (1) Acute cholecystitis Current Visit: Yes Status: Acute Code(s): K81.0 - ACUTE CHOLECYSTITIS SNOMED Code(s): 69845881
--- NOTE | 2021-01-25 11:10 | P.PN ---
Progress Note - Text Progress Note Date: 01/25/21 Spoke to daughter April regarding plans of surgery. Questions were addressed including anticipated robotic cholecystectomy and increased risk for bleeding due to recent antiplatelet and anticoagulant use. Anticipated timeframe for surgery and risks reviewed
[2021-01-25 12:26] LABS: Glucose,Whole Blood 102 mg/dL (75-99)
[2021-01-25] MEDS ORDERED: PROPOFOL 10 MG/ML 20 ML VIAL IV ONE (13:18)
[2021-01-25] MEDS ORDERED: NEOSTIGMINE 1 MG/ML 10 ML VIAL ONE (13:18)
[2021-01-25] MEDS ORDERED: SUCCINYLCHOLINE CHLORIDE 100 MG/5 ML SYR IV ONE (13:18)
[2021-01-25] MEDS ORDERED: PHENYLEPHRINE-0.9% NACL SYG 1,000 MCG/10 ML SYRINGE ONE (13:18)
[2021-01-25] MEDS ORDERED: SODIUM CHLORIDE 0.9% 1,000 ML IV ONE (13:18)
[2021-01-25] MEDS ORDERED: SUGAMMADEX SODIUM 500 MG/5 ML SDV IV ONE (13:18)
[2021-01-25] MEDS ORDERED: LIDOCAINE 1% INJ 10MG/ML (20 ML MDV) ONE (13:18)
[2021-01-25] MEDS ORDERED: INDOCYANINE GREEN 25 MG VIAL IV ONE (13:18)
[2021-01-25] MEDS ORDERED: .fentaNYL (PF) 50 MCG/ML 2 ML AMP ONE (13:18)
[2021-01-25] MEDS ORDERED: GLYCOPYRROLATE 0.2 MG/ML 2 ML VIAL ONE (13:18)
[2021-01-25] MEDS ORDERED: ROCURONIUM 10 MG/ML (5 ML VIAL) IV ONE (13:18)
[2021-01-25] MEDS ORDERED: BUPIVACAIN-EPI 0.25%-1:200,000 30 ML VIAL SQ ONE (13:55)
[2021-01-25] MEDS ORDERED: LACTATED RINGERS 1,000 ML IV ONE (14:58)
--- NOTE | 2021-01-25 16:08 | P.OP ---
Date of Procedure: 01/25/21 Description of Procedure: SURGEON: GARCIA FUNK MD PREOPERATIVE DIAGNOSES: 1. Acute cholecystitis with sepsis POSTOPERATIVE DIAGNOSES: 1. Acute hemorrhagic gangrenous cholecystitis OPERATION: 1. Robotic-assisted da Millicent Xi laparoscopic lysis of adhesions over 1 hour 2. Robotic-assisted da Millicent Xi laparoscopic cholecystectomy, multiport with FIREFLY 3. Placement of round #19 Estrada-Hammond drain, hepatic fossa ESTIMATED BLOOD LOSS: 75 mL. SPECIMENS REMOVED: Gallbladder. COMPLICATIONS: None. OPERATIVE FINDINGS: 1. Acute hemorrhagic gangrenous cholecystitis with hydrops and distended gallbladder 2. Indocyanine green confirms acute cholecystitis with lack of contrast in gallbladder 3. Common bile duct within normal limits, without dilation 4. Bleeding along hepatic fossa controlled with Surgicel and fibular INDICATIONS: The patient is a 89 year-old female who presents with epigastric right upper quadrant pain, WBC over 24,000, and clinical features of acute cholecystitis with presentation of sepsis. Antibiotic management including pain management was prescribed to manage her cholecystitis. Cardiac risk assessment was performed prior to surgery. Surgical intervention with cholecystectomy was described. Robotic assisted laparoscopic approach was described. Benefits and risks of the procedure including but not limited to bleeding, infection, injury to the biliary tree was reviewed. Informed consent was obtained. DESCRIPTION OF PROCEDURE: Patient was brought to the operating room, placed in supine position. After general induction, the abdomen had been prepped and draped in standard sterile fashion. The robotic da Millicent XI system was primed. After a timeout protocol was performed, the patient had been prepped and draped in standard sterile fashion. The patient was injected with indocyanine green. A 5 mm 0 degrees laparoscopic trocar entry was performed along the left upper quadrant. The abdomen insufflated to 15 mmHg pressure which was tolerated well. Diagnostic laparoscopy demonstrated no injury to bowel viscera or mesentery. The liver surface was unremarkable. A moderately distended gallbladder was identified adding complexity to the case. Next, two 8 mm robotic ports were placed along the right upper abdomen. The camera 8-mm port was maintained along the epigastrium. Another 8 mm port was placed along the left upper abdominal wall after exchanging the 5 mm port. Please note that the ports were placed at least 10 to 15 cm away from the target anatomy of the gallbladder. The robot was docked along the left lateral abdomen. The patient was repositioned in reverse Trendelenburg position at 21 with the right side up 7. Using a grasper for arm 3, a grasper for arm 4, including hook cautery for arm 1, the robotic system was docked and primed as described. Instruments were interchanged by the tourist information assistant including hook cautery, Bovie cautery and clip appliers. Additional instruments including vessel sealer, robotic suction director camp, robotic stapler were made available. I had sat at the console. The gallbladder was encased in surrounding tissue including the proximal transverse colon, omentum adding complexity to the case and requiring extensive lysis of adhesions using blunt and sharp dissection using vessel sealer including hook artery for over one hour. The gallbladder was reflected towards the dome of the liver. The gallbladder was moderately distended adding complexity to the case. Edema was found along the cystic triangle including infundibulum. Initial dissection was performed on the gallbladder infundibulum using indocyanine green to illuminate the cystic duct and common bile duct. Due to moderate distention of the infundibulum, dome down technique was performed removing the gallbladder from the hepatic fossa starting from the fundus towards the infundibulum. Using a sponge, the liver was reflected towards the diaphragm and starting at the gallbladder fundus, hook cautery was used between the liver and the gallbladder. The patient pre-existing easy bleeding from her skin incisions and from the liver bed requiring hemostatic agents such as fibular. As the gallbladder was dissected from the hepatic fossa, hemostasis was checked using vessel sealer along the posterior gallbladder. Next, indocyanine green was used to confirm the common bile duct as well as cystic duct. The entire gallbladder was without contrast consistent with acute cholecystitis. The infundibulum was retracted laterally away from the common bile duct. FIREFLY was used to identify the common bile duct. Two plastic clips were used to divide the cystic duct. A plastic clip was also used to divide the cystic artery. Bleeding along the liver bed was controlled and hemostatic agents. The abdomen was irrigated with normal saline solution of 1 L. Indocyanine green was used to confirm no bile leak from the staple line. Sponges were removed from the abdomen. The robot was undocked. I re-scrubbed into the case. A 10 mm Endo Catch bag was used to remove the gallbladder in total via the left upper quadrant incision after widening the incision. The specimen was removed from the abdominal cavity. Rip Kaufman and 0 Vicryl was used to close the fascial defect of the left upper quadrant. A round #19 drain was placed along the right upper quadrant at the hepatic fossa and exited via the right lateral trocar. A drain stitch 2-0 nylon was placed. All pneumoperitoneum instruments were evacuated from the abdominal cavity. The incisions were cleansed using dilute hydrogen peroxide. The incisions were reapproximated using 4-0 Monocryl in an interrupted subcuticular fashion. Please note along the trocar sites, local anesthetic was placed as a field block prior to insertion of all instruments. Liquid glue was applied to the skin. Optifoam was placed along the MARYAN site for the left upper quadrant. At the end of the procedure needle, sponge, and instrument count had been verified correct by the surgical device sales representative. The patient was transferred to postanesthesia care unit in stable condition. Intraoperative films were shared with the patient's family who were pleased with the level of care.
[2021-01-25 17:42] LABS: Glucose,Whole Blood 135 mg/dL (75-99)
[2021-01-25] MEDS: SIMETHICONE 40 MG/0.6 ML DROPS 2,000 MG/30 ML BOTTLE PO SCH ×2 (17:54→20:55)
[2021-01-25] MEDS: HYDROmorphone 0.5 MG/0.5 ML SYRINGE IVP PRN ×2 (18:04→20:53)
--- NOTE | 2021-01-25 18:29 | P.PN ---
Subjective Progress Note Date: 01/25/21 Hospital course: Patient is a very pleasant 89-year-old female with a past medical history of CAD with stents on plavix, atrial fibrillation on anticoagulation with Eliquis, hypertension, and type II drz-ilixmma-bdxktewwt diabetes mellitus. she presented to the hospital on 01/20/21 with a chief complaint of abdominal pain accompanied by multiple episodes of vomiting. CT abdomen and pelvis was completed revealing moderate atherosclerotic vascular disease, mild sigmoid diverticulosis, interstitial infiltrates and atelectasis in bilateral lower lobes of lungs, cardiomegaly, and dilated gallbladder suggestive of bladder dysfunction or cholecystitis. patient was found to be POSITIVE for COVID 19 virus infection and have significant leukocytosis with WBC count of 24.81, and macrocytic normochromic anemia with hemoglobin of 9.9. AST elevated at 264 and ALT elevated at 138.patient was admitted under our services with consultation to general surgery. Physical exam: Vital signs reviewed and stable. General: Nontoxic, no distress and appears stated age. Derm: Skin warm and dry, normal coloration for ethnicity. Head: Atraumatic, normocephalic and symmetric. Eyes: EOMs intact, no lid lag, and anicteric sclera Mouth: no lip lesions, mucus membranes moist Cardiovascular: regular rate and rhythm with normal S1S2, no murmur, positive posterior tibial pulses bilaterally, and cap refill < 2 seconds. Lungs: Respirations even, regular, and unlabored on room air. Lungs CTA bilaterally, no rhonchi, no rales, no wheezing, and no accessory muscle usage. Abdominal: soft, right upper quadrant tenderness upon palpation., no guarding, no appreciable organomegaly Ext: ROM intact. No gross muscle atrophy, no edema, no contractures Neuro: Speech clear, face symmetrical and CN II-XII grossly intact with no noted focal neuro deficits Psych: Alert and oriented to person, place, time, and situation. Appropriate and pleasant affect. Assessment and Plan of Care: Abdominal pain, secondary to acute cholecystitis scheduled for surgery later today with Dr. Jacome at 1 PM -Surgery following, tentatively scheduled for cholecystectomy later today -Continue with IV fluids and IV antibiotics ceftriaxone and Flagyl -Hold the patient's Eliquis in anticipation of surgery -Symptomatic care and pain management. CAD s/p 3 stents -Cardiology consulted for preoperative clearance, stating patient stable to proceed with surgical intervention and Plavix and Eliquis was to be held. Covid 19 virus infection, asymptomaticand vaccinated patient -The patient is currently denying SOB, fever, or chest pain -Not requiring supplemental oxygen at this time -The patient is vaccinated and had also received her booster shot Left lower lung soft tissue mass This was discussed with her daughter on the phone, she stated that a decision will be made regarding what to do with it after she is done with her current illness. Thrombocytosis -Likely reactive -Monitor for now Type II wbz-mzjydyl-gqbbqboug diabetes mellitus -A1c 5.9% -Hold oral hypoglycemic medications in place patient on NovoLog sliding scale with glycemic protocol. Paroxysmal Atrial fibrillation -Hold the patient's Eliquis in anticipation of surgery, continue daily amiodarone, Cardizem, and metoprolol. Hypertension Monitor vital signs and continue daily medication regimen. CODE STATUS: Full code DVT prophylaxis: SCDs, Eliquis held pending surgery Discussed with: Patient and RN Anticipated discharge date: clinical course to determine Anticipated discharge place: home A total of 45 minutes was spent on the care of this complex patient more than 50% of the time was spent in counseling and care coordination. Objective - Vital Signs Vital signs: Vital Signs Temp 97.3 F L 01/25/21 06:49 Pulse 82 01/25/21 06:49 Resp 16 01/25/21 06:49 BP 126/58 01/25/21 06:49 Pulse Ox 92 L 01/25/21 08:25 Intake & Output 01/24/21 01/25/21 01/25/21 18:59 06:59 18:59 Intake Total 750 Balance 750 Intake: IV 750 Sodium Chloride 0.9% 1, 600 000 ml @ 75 mls/hr IV . [id number] [facility] Rx#:[id number] cefTRIAXone 2 gm In 50 Sodium Chloride 0.9% 50 ml @ 100 mls/hr IVPB Q24H [facility] Rx#:[id number] metroNIDAZOLE-NS PMX 500 100 mg In Saline 1 100ml.bag @ 100 mls/hr IVPB Q8H [facility] Rx#:[id number] Other: Voiding Method Toilet Toilet # Voids 1 1 # Bowel Movements 1 - Labs CBC & Chem 7: 01/25/21 05:15 01/25/21 05:15 Labs: Abnormal Lab Results - Last 24 Hours (Table) 01/24/21 01/24/21 01/24/21 Range/Units 06:03 06:03 12:12 RBC 2.89 L (4.10-5.20) X 10*6/uL Hgb 8.8 L (12.0-15.0) g/dL Hct 29.0 L (37.2-46.3) % MCV 100.3 H (80.0-97.0) fL MCHC 30.3 L (32.0-37.0) g/dL RDW 15.1 H (11.5-14.5) % Nucleated RBCs (0-0) /100 WBC Chloride 114 H (96-109) mmol/L Carbon Dioxide 19.5 L (21.6-31.8) mmol/L BUN/Creatinine Ratio 20.86 H (12.00-20.00) Ratio Glucose (74-99) mg/dL POC Glucose (mg/dL) 146 H (75-99) mg/dL Calcium 8.2 L (8.7-10.3) mg/dL Total Bilirubin 0.20 L (0.30-1.20) mg/dL AST 60 H (13-35) U/L ALT 89 H (8-44) U/L Alkaline Phosphatase 161 H (41-126) U/L Total Protein 5.0 L (6.2-8.2) g/dL Albumin 3.0 L (3.8-4.9) g/dL Albumin/Globulin Ratio 1.50 L (1.60-3.17) g/dL 01/24/21 01/24/21 01/25/21 Range/Units 17:29 20:30 05:15 RBC 3.00 L (4.10-5.20) X 10*6/uL Hgb 9.4 L (12.0-15.0) g/dL Hct 30.6 L (37.2-46.3) % MCV 101.8 H (80.0-97.0) fL MCHC 30.8 L (32.0-37.0) g/dL RDW (11.5-14.5) % Nucleated RBCs 1 H (0-0) /100 WBC Chloride (96-109) mmol/L Carbon Dioxide (21.6-31.8) mmol/L BUN/Creatinine Ratio (12.00-20.00) Ratio Glucose (74-99) mg/dL POC Glucose (mg/dL) 138 H 110 H (75-99) mg/dL Calcium (8.7-10.3) mg/dL Total Bilirubin (0.30-1.20) mg/dL AST (13-35) U/L ALT (8-44) U/L Alkaline Phosphatase (41-126) U/L Total Protein (6.2-8.2) g/dL Albumin (3.8-4.9) g/dL Albumin/Globulin Ratio (1.60-3.17) g/dL 01/25/21 Range/Units 05:15 RBC (4.10-5.20) X 10*6/uL Hgb (12.0-15.0) g/dL Hct (37.2-46.3) % MCV (80.0-97.0) fL MCHC (32.0-37.0) g/dL RDW (11.5-14.5) % Nucleated RBCs (0-0) /100 WBC Chloride 117 H (96-109) mmol/L Carbon Dioxide 20 L (21.6-31.8) mmol/L BUN/Creatinine Ratio (12.00-20.00) Ratio Glucose 108 H (74-99) mg/dL POC Glucose (mg/dL) (75-99) mg/dL Calcium 8.3 L (8.7-10.3) mg/dL Total Bilirubin (0.30-1.20) mg/dL AST 41 H (13-35) U/L ALT 65 H (8-44) U/L Alkaline Phosphatase 134 H (41-126) U/L Total Protein 5.3 L (6.2-8.2) g/dL Albumin 2.6 L (3.8-4.9) g/dL Albumin/Globulin Ratio (1.60-3.17) g/dL Microbiology - Last 24 Hours (Table) 01/21/21 19:00 Blood Culture - Preliminary Blood No Growth after 72 hours
[2021-01-25] MEDS: ONDANSETRON 4 MG/2 ML VIAL IVP PRN (19:17)
[2021-01-25 20:32] LABS: Glucose,Whole Blood 158 mg/dL (75-99)
[2021-01-25] MEDS: ATORVASTATIN 40 MG TAB PO SCH (20:53)
[2021-01-25] MEDS: LATANOPROST 0.005% OPHTH DROPS 2.5 ML BTL BOTH EYES SCH (20:55)
[2021-01-26] MEDS: metroNIDAZOLE-NS PMX 500 MG in SALINE 1 100ML.BAG IVPB SCH ×3 (03:55→19:54)
[2021-01-26] MEDS: INSULIN ASPART (NovoLOG) 100 UNIT/ML VIAL SQ SCH ×4 (08:08→19:55)
[2021-01-26] MEDS: ASPIRIN 81 MG PO SCH (08:08)
[2021-01-26] MEDS: POTASSIUM CHLORIDE ER 20 MEQ TAB.ER PO SCH (08:08)
[2021-01-26] MEDS: METOPROLOL SUCCINATE (ER) 100 MG TAB.ER.24H PO SCH (08:08)
[2021-01-26] MEDS: GABAPENTIN 300 MG CAP PO SCH ×2 (08:08→19:54)
[2021-01-26] MEDS: amLODIPine 5 MG TAB PO SCH (08:08)
[2021-01-26] MEDS: hydrALAZINE HCL 50 MG TAB PO SCH ×2 (08:08→19:54)
[2021-01-26] MEDS: FAMOTIDINE 20 MG TAB PO SCH (08:08)
[2021-01-26] MEDS: SIMETHICONE 40 MG/0.6 ML DROPS 2,000 MG/30 ML BOTTLE PO SCH ×4 (08:09→22:51)
[2021-01-26] MEDS: SODIUM CHLORIDE 0.9% 1,000 ML IV SCH ×2 (08:09→19:54)
[2021-01-26 08:13] LABS: Glucose,Whole Blood 119 mg/dL (75-99)
[2021-01-26] MEDS: ACETAMINOPHEN TAB 325 MG TAB PO PRN ×2 (08:16→22:51)
--- NOTE | 2021-01-26 09:53 | P.PN ---
Subjective Progress Note Date: 01/26/21 CHIEF COMPLAINT: Cardiac clearance HISTORY OF PRESENT ILLNESS: 01/23/2021 This is an 89-year-old female patient follows with mesh man Dr. 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 Last echocardiogram in November of this year revealed preserved left ventricle size and systolic function with mild to moderate aortic stenosis, moderate mitral and tricuspid regurgitation with moderate pulmonary hypertension. Patient presented to the hospital with complaints of abdominal pain in the right upper quadrant and found on CAT scan to have a dilated gallbladder with no dilated duct. HIDA scan revealed evidence of acute cholecystitis. Plan is for surgical intervention on Monday with cardiology clearance. Patient has positive for: 19 but has been vaccinated and received booster. Her vital signs have been stable. No concerns from her nurse. 01/26/2021 Patient is s/p cholecystectomy with Dr. Hooks. Patient remains in atrial fibrillation with controlled ventricular rates. Patient's hemoglobin yesterday 9.4. Repeat hemoglobin today is pending. Patients Eliquis remains on hold. Records obtained from [facility] reveal patient underwent cardiac catheterization in October 2019 with obstructive single vessel disease: LAD greater than 90% proximal to mid and mid LAD with 2 drug-eluting stents placed and moderate aortic stenosis. PHYSICAL EXAM: Thorough physical exam not completed secondary to limited evaluation/examination due to Covid19 ASSESSMENT: Acute Covid 19 Acute cholecystitis Chronic persistent atrial fibrillation, on Eliquis Coronary artery disease with previous PCI to LAD x 2, October 2019 at [facility] Moderate aortic stenosis Hypertension Hyperlipidemia Diabetes PLAN: Case discussed with surgery PA, Tova Martinez who states Dr. Hooks does not want Eliquis resumed at this time. Relayed message that Dr. Rodriguez states patient only needs to be resumed on Eliquis. She does not need to continue on aspirin or plavix. Will defer reinitiation of Eliquis to surgical team. Patient to follow up outpatient with her mesh man, Dr. Ennis. We will follow on an as-needed basis. Please call with questions or concerns. Nurse practitioner note has been reviewed by physician. Signing provider agrees with the documented findings, assessment, and plan of care. Objective - Vital Signs Vital signs: Vital Signs Temp 97.9 F 01/26/21 07:02 Pulse 84 01/26/21 07:02 Resp 16 01/26/21 07:02 BP 132/66 01/26/21 07:02 Pulse Ox 97 01/26/21 07:02 Intake & Output 01/25/21 01/26/21 01/26/21 18:59 06:59 18:59 Intake Total 950 90 Output Total 75 130 Balance 875 -130 90 Intake: IV 900 Oral 50 90 Output: Drainage 80 Right Abdomen 80 Emesis 50 Estimated Blood Loss 75 Other: Voiding Method Toilet # Voids 0 0 - Labs CBC & Chem 7: 01/25/21 05:15 01/25/21 05:15 Labs: Abnormal Lab Results - Last 24 Hours (Table) 01/25/21 01/25/21 01/25/21 Range/Units 12:21 16:59 20:29 POC Glucose (mg/dL) 102 H 135 H 158 H (75-99) mg/dL 01/26/21 Range/Units 07:34 POC Glucose (mg/dL) 119 H (75-99) mg/dL Microbiology - Last 24 Hours (Table) 01/21/21 19:00 Blood Culture - Preliminary Blood No Growth after 96 hours
[2021-01-26 11:22] LABS: Basophils # (A) 0.04 X 10*3/uL (0.00-0.10); Basophils % (A) 0.4 %; Eosinophils # (A) 0.01 X 10*3/uL (0.04-0.35); Eosinophils % (A) 0.1 %; HCT 29.2 % (37.2-46.3); HGB 8.7 g/dL (12.0-15.0); Lymphocytes # (A) 1.74 X 10*3/uL (0.90-5.00); Lymphocytes % (A) 17.8 %; MCH 31.3 pg (27.0-32.0); MCHC 29.8 g/dL (32.0-37.0); Mean Platelet Volume 10.3 fL (9.5-12.2); Monocytes # (A) 1.17 X 10*3/uL (0.20-1.00); Neutrophils # (A) 6.74 X 10*3/uL (1.80-7.70); Neutrophils % (A) 69.1 %; Platelet Count 352 X 10*3/uL (140-440); RBC 2.78 X 10*6/uL (4.10-5.20); RDW 15.1 % (11.5-14.5); WBC 9.76 X 10*3/uL (4.50-10.00)
[2021-01-26 12:12] LABS: Phosphorus 3.2 mg/dL (2.4-5.1)
--- NOTE | 2021-01-26 12:22 | P.PN ---
Subjective Progress Note Date: 01/26/21 CHIEF COMPLAINT: Abdominal pain HISTORY OF PRESENT ILLNESS: Patient is status post Robotic-assisted da Millicent Xi laparoscopic lysis of adhesions and Robotic-assisted da Millicent Xi laparoscopic cholecystectomy for acute hemorrhagic gangrenous cholecystitis. Patient is sitting up at bedside chair. She reports that her pain is controlled. She denies any nausea or vomiting. Denies any flatus. She is currently on a low- fat diet. MARYAN drain with 80 ML serosanguineous fluid output. Afebrile. WBC is 9.76 Hgb 8.7 platelets 352 CMP pending phosphorus 3.2 PHYSICAL EXAM: VITAL SIGNS: Reviewed. GENERAL: Well-developed in no acute distress. HEENT: No sclera icterus. Extraocular movements grossly intact. Moist buccal mucosa. Head is atraumatic, normocephalic. ABDOMEN: Soft. Mildly distended. MARYAN drain serosanguineous fluid NEUROLOGIC: Alert and oriented. Cranial nerves II through XII grossly intact. ASSESSMENT: 1. Acute hemorrhagic gangrenous cholecystitis status post Robotic-assisted da Millicent Xi laparoscopic lysis of adhesions and Robotic-assisted da Millicent Xi laparoscopic cholecystectomy 2. Covid PCR positive 3. History of atrial fibrillation 4. Diabetes mellitus 5. Hypertension PLAN: -Continue to hold Eliquis and Plavix -Continue antibiotics -Continue pain medication as needed -Continue low-fat diet -Encourage patient to ambulate -Encourage patient to use incentive spirometer Physician Contract Technician note has been reviewed by physician. Signing provider agrees with the documented findings, assessment, and plan of care. Objective - Vital Signs Vital signs: Vital Signs Temp 97.9 F 01/26/21 07:02 Pulse 84 01/26/21 07:02 Resp 16 01/26/21 07:02 BP 132/66 01/26/21 07:02 Pulse Ox 97 01/26/21 07:02 Intake & Output 01/25/21 01/26/21 01/26/21 18:59 06:59 18:59 Intake Total 950 90 Output Total 75 130 250 Balance 875 -130 -160 Intake: IV 900 Oral 50 90 Output: Drainage 80 Right Abdomen 80 Urine 250 Straight 250 Emesis 50 Estimated Blood Loss 75 Other: Voiding Method Toilet # Voids 0 0 - Labs CBC & Chem 7: 01/26/21 06:51 01/25/21 05:15 Labs: Abnormal Lab Results - Last 24 Hours (Table) 01/25/21 01/25/21 01/25/21 Range/Units 12:21 16:59 20:29 RBC (4.10-5.20) X 10*6/uL Hgb (12.0-15.0) g/dL Hct (37.2-46.3) % MCV (80.0-97.0) fL MCHC (32.0-37.0) g/dL RDW (11.5-14.5) % Absolute Nucleated RBC (0.00-0.00) X 10*3/uL Immature Gran # (0.00-0.04) X 10*3/uL Monocytes # (0.20-1.00) X 10*3/uL Eosinophils # (0.04-0.35) X 10*3/uL NRBC/100 WBC Diff (0.0-0.0) /100 WBCS POC Glucose (mg/dL) 102 H 135 H 158 H (75-99) mg/dL 01/26/21 01/26/21 Range/Units 06:51 07:34 RBC 2.78 L (4.10-5.20) X 10*6/uL Hgb 8.7 L (12.0-15.0) g/dL Hct 29.2 L (37.2-46.3) % MCV 105.0 H (80.0-97.0) fL MCHC 29.8 L (32.0-37.0) g/dL RDW 15.1 H (11.5-14.5) % Absolute Nucleated RBC 0.02 H (0.00-0.00) X 10*3/uL Immature Gran # 0.06 H (0.00-0.04) X 10*3/uL Monocytes # 1.17 H (0.20-1.00) X 10*3/uL Eosinophils # 0.01 L (0.04-0.35) X 10*3/uL NRBC/100 WBC Diff 0.2 H (0.0-0.0) /100 WBCS POC Glucose (mg/dL) 119 H (75-99) mg/dL Microbiology - Last 24 Hours (Table) 01/21/21 19:00 Blood Culture - Preliminary Blood No Growth after 96 hours
[2021-01-26 12:23] LABS: Glucose,Whole Blood 146 mg/dL (75-99)
[2021-01-26 13:10] LABS: ALT 70 U/L (8-44); AST 84 U/L (13-35); African American GFR (CKD) 54.3 (60.0-200.0); Albumin 3.2 g/dL (3.8-4.9); Albumin/Globulin Ratio 1.46 (1.60-3.17); Alkaline Phosphatase 141 U/L (41-126); BUN/Creat Ratio 17.17 Ratio (12.00-20.00); Blood Urea Nitrogen 18.2 mg/dL (9.0-27.0); Calcium 8.1 mg/dL (8.7-10.3); Carbon Dioxide 14.3 mmol/L (21.6-31.8); Chloride 116 mmol/L (96-109); Globulin 2.2 g/dL (1.6-3.3); Glucose 117 mg/dL (70-110); Non-African American GFR(CKD) 46.8 (60.0-200.0); Potassium 5.5 mmol/L (3.5-5.5); Sodium 145 mmol/L (135-145); Total Bilirubin <0.20 mg/dL (0.30-1.20); Total Protein 5.4 g/dL (6.2-8.2)
[2021-01-26] MEDS ORDERED: SODIUM CHLORIDE 0.9% 500 ML 500 ML IV ONE (13:31)
--- NOTE | 2021-01-26 13:31 | P.PN ---
Subjective Progress Note Date: 01/26/21 Hospital course: Patient is a very pleasant 89-year-old female with a past medical history of CAD with stents on plavix, atrial fibrillation on anticoagulation with Eliquis, hypertension, and type II gvj-owxbxdo-ygcwbtsxv diabetes mellitus. she presented to the hospital on 01/20/21 with a chief complaint of abdominal pain accompanied by multiple episodes of vomiting. CT abdomen and pelvis was completed revealing moderate atherosclerotic vascular disease, mild sigmoid diverticulosis, interstitial infiltrates and atelectasis in bilateral lower lobes of lungs, cardiomegaly, and dilated gallbladder suggestive of bladder dysfunction or cholecystitis. patient was found to be POSITIVE for COVID 19 virus infection and have significant leukocytosis with WBC count of 24.81, and macrocytic normochromic anemia with hemoglobin of 9.9. AST elevated at 264 and ALT elevated at 138.patient was admitted under our services with consultation to general surgery. Physical exam: Patient seen and fully evaluated at bedside this morning. She was sitting up in chair and reports "feeling much better than yesterday.". Patient does report feeling slightly weak with diffuse abdominal tenderness, but states she was able to tolerate her breakfast and denies having any nausea or vomiting. Patient has had oliguria status post surgical procedure with reported output being 250 mL overnight. Order placed for 500 mL bolus and continued close monitoring of I's and O's and bladder scan for postvoid residual. Patient continues to deny having any chest pain, palpitations, shortness of breath, cough, or congestion. She remains afebrile. Patient this morning was on 3 L O2 via nasal cannula with SpO2 of 95%, will place order for repeat chest x-ray to evaluate. Vital signs reviewed and stable. General: Nontoxic, no distress and appears stated age. Derm: Skin warm and dry, normal coloration for ethnicity. Head: Atraumatic, normocephalic and symmetric. Eyes: EOMs intact, no lid lag, and anicteric sclera Mouth: no lip lesions, mucus membranes moist Cardiovascular: regular rate and rhythm with normal S1S2, no murmur, positive posterior tibial pulses bilaterally, and cap refill < 2 seconds. Lungs: Respirations even, regular, and unlabored on room air. Lungs CTA bilaterally, no rhonchi, no rales, no wheezing, and no accessory muscle usage. Abdominal: soft and distended with diffuse abdominal tenderness, abdominal binder and postsurgical dressings in place with MARYAN drain. No guarding, no appreciable organomegaly Ext: ROM intact. No gross muscle atrophy, no edema, no contractures Neuro: Speech clear, face symmetrical and CN II-XII grossly intact with no noted focal neuro deficits Psych: Alert and oriented to person, place, time, and situation. Appropriate and pleasant affect. Assessment and Plan of Care: Abdominal pain, secondary to acute cholecystitis Status post robotic-assisted laparoscopic cholecystectomy with lysis of adhesions and placement of Estrada-Hammond drain secondary to acute hemorrhagic gangrenous cholecystitis, Day 1 postop -Postoperative management per general surgery team including pain management, wound care, DVT prophylaxis, and drain care. -Continue with IV fluids and IV antibiotics ceftriaxone and Flagyl -Hold the patient's Eliquis pending clearance by general surgery to resume. -Symptomatic care and pain management. Macrocytic normochromic Anemia -Stable with hemoglobin of 9.4, morning labs pending -We will continue to monitor closely with repeat a.m. labs. Covid 19 virus infection, asymptomaticand vaccinated patient -The patient continues to deny SOB, cough, fever, or chest pain -Not requiring supplemental oxygen at this time -The patient is vaccinated and had also received her booster shot CAD s/p 3 stents -Cardiology consulted for preoperative clearance, stating patient stable to proceed with surgical intervention and Plavix and Eliquis was to be held. Left lower lung soft tissue mass This was discussed with her daughter on the phone, she stated that a decision will be made regarding what to do with it after she is done with her current illness. Thrombocytosis -Likely reactive -Monitor for now Type II vay-pgjoluo-nttnipwzt diabetes mellitus -A1c 5.9% -Hold oral hypoglycemic medications in place patient on NovoLog sliding scale with glycemic protocol. Paroxysmal Atrial fibrillation -Hold the patient's Eliquis in anticipation of surgery, continue daily amiodarone, Cardizem, and metoprolol. Hypertension Monitor vital signs and continue daily medication regimen. CODE STATUS: Full code DVT prophylaxis: SCDs, Eliquis held pending surgery Discussed with: Patient and RN Anticipated discharge date: clinical course to determine Anticipated discharge place: home A total of 45 minutes was spent on the care of this complex patient more than 50% of the time was spent in counseling and care coordination. Objective - Vital Signs Vital signs: Vital Signs Temp 97.9 F 01/26/21 07:02 Pulse 84 01/26/21 07:02 Resp 16 01/26/21 07:02 BP 132/66 01/26/21 07:02 Pulse Ox 97 01/26/21 07:02 Intake & Output 01/25/21 01/26/21 01/26/21 18:59 06:59 18:59 Intake Total 950 Output Total 75 130 Balance 875 -130 Intake: IV 900 Oral 50 Output: Drainage 80 Right Abdomen 80 Emesis 50 Estimated Blood Loss 75 Other: Voiding Method Toilet # Voids 0 0 - Labs CBC & Chem 7: 01/26/21 06:51 01/26/21 06:51 Labs: Abnormal Lab Results - Last 24 Hours (Table) 01/25/21 01/25/21 01/25/21 Range/Units 12:21 16:59 20:29 POC Glucose (mg/dL) 102 H 135 H 158 H (75-99) mg/dL 01/26/21 Range/Units 07:34 POC Glucose (mg/dL) 119 H (75-99) mg/dL Microbiology - Last 24 Hours (Table) 01/21/21 19:00 Blood Culture - Preliminary Blood No Growth after 96 hours
[2021-01-26 17:34] LABS: Glucose,Whole Blood 163 mg/dL (75-99)
[2021-01-26 19:26] LABS: Glucose,Whole Blood 158 mg/dL (75-99)
[2021-01-26] MEDS: ATORVASTATIN 40 MG TAB PO SCH (19:54)
[2021-01-26] MEDS: HYDROmorphone 0.5 MG/0.5 ML SYRINGE IVP PRN (19:55)
--- NOTE | 2021-01-26 22:14 | XR ---
EXAMINATION TYPE: XR chest 1V portable DATE OF EXAM: 01/26/2021 COMPARISON: 01/21/2021 HISTORY: Pneumonia TECHNIQUE: Single view FINDINGS: There is airspace infiltrate and atelectasis at both lung bases. There is mild pulmonary co ngestion. Heart is probably enlarged. There is some blunting of the costophrenic angles. IMPRESSION: There is evidence for some congestive heart failure with pleural effusions and basilar pu lmonary infiltrates increased compared to recent exam.
[2021-01-26] MEDS: LATANOPROST 0.005% OPHTH DROPS 2.5 ML BTL BOTH EYES SCH (22:51)
[2021-01-27] MEDS: ONDANSETRON 4 MG/2 ML VIAL IVP PRN ×2 (02:09→11:30)
[2021-01-27] MEDS: HYDROmorphone 0.5 MG/0.5 ML SYRINGE IVP PRN (02:09)
[2021-01-27] MEDS: metroNIDAZOLE-NS PMX 500 MG in SALINE 1 100ML.BAG IVPB SCH ×3 (05:20→21:10)
[2021-01-27 07:37] LABS: Glucose,Whole Blood 102 mg/dL (75-99)
--- NOTE | 2021-01-27 08:34 | P.PN ---
Subjective Progress Note Date: 01/27/21 CHIEF COMPLAINT: Acute hydrops cholecystitis HISTORY OF PRESENT ILLNESS: The patient is a 89-year-old female status post cholecystectomy for acute hydrops purulent cholecystitis. She is tolerating di et. She reports appropriate left upper quadrant incisional pain. ROS: No reports of nausea and vomiting. No fevers or chills. No new chest pain. PHYSICAL EXAM: VITAL SIGNS: Reviewed CONSTITUTIONAL: Well developed and in no acute distress. EYES: Conjuctivae without sclera icterus. Extraocular movements grossly intact. HEAD, EARS, NOSE, THROAT: Moist buccal mucosa. Head is atraumatic, no rmocephalic. Hears conversational speech. No nasal drainage. NECK: No gross thyroidomegaly. No jugular venous distention. RESPIRATORY: Non-labored respirations and equal bilateral excursions. CARDIOVASCULAR: Palpable 2+ radial pulses. Regular rate. Irregular rhythm. ABDOMEN: Incisions clean dry and intact. Soft. No peritonitis. MARYAN serosanguineous MUSCULOSKELETAL: No gross deformity of the lower extremities noted. No clubbing. No cyanosis. SKIN: Good skin turgor. Well perfused. Results subcutaneous emphysema. NEUROLOGIC: Cranial nerves II through XII grossly intact. No focal or la teralizing signs. PSYCH: Alert and oriented to person CLINICAL LABS: Reviewed. White blood cell count normal. LFTs trending down. ASSESSMENT: 1. Acute hydrops hemorrhagic gangrenous cholecystitis with purulence PLAN: 1. Repeat CBC and CMP. 2. Discharge home with Estrada-Hammond drain. 3. Physical therapy and occupation therapy as outpatient versus rehab advised. 4. Likely discharge pending results of CBC and CMP. 5. May restart Eliquis and Plavix tomorrow Objective - Vital Signs Vital signs: Vital Signs Temp 98.4 F 01/27/21 02:00 Pulse 95 01/27/21 02:00 Resp 18 01/27/21 02:00 BP 148/80 01/27/21 02:00 Pulse Ox 93 L 01/27/21 02:00 Intake & Output 01/26/21 01/27/21 01/27/21 18:59 06:59 18:59 Intake Total 300 Output Total 520 275 Balance -220 -275 Intake: Oral 300 Output: Drainage 20 Right Abdomen 20 Urine 500 275 Straight 250 Other: # Voids 0 1 - Labs CBC & Chem 7: 01/26/21 06:51 01/26/21 06:51 Labs: Abnormal Lab Results - Last 24 Hours (Table) 01/26/21 01/26/21 01/26/21 Range/Units 06:51 06:51 11:41 RBC 2.78 L (4.10-5.20) X 10*6/uL Hgb 8.7 L (12.0-15.0) g/dL Hct 29.2 L (37.2-46.3) % MCV 105.0 H (80.0-97.0) fL MCHC 29.8 L (32.0-37.0) g/dL RDW 15.1 H (11.5-14.5) % Absolute Nucleated RBC 0.02 H (0.00-0.00) X 10*3/uL Immature Gran # 0.06 H (0.00-0.04) X 10*3/uL Monocytes # 1.17 H (0.20-1.00) X 10*3/uL Eosinophils # 0.01 L (0.04-0.35) X 10*3/uL NRBC/100 WBC Diff 0.2 H (0.0-0.0) /100 WBCS Chloride 116 H (96-109) mmol/L Carbon Dioxide 14.3 L (21.6-31.8) mmol/L Anion Gap 14.90 H (4.00-12.00) mmol/L Est GFR (CKD-EPI)AfAm 54.3 L (60.0-200.0) Est GFR (CKD-EPI)NonAf 46.8 L (60.0-200.0) Glucose 117 H (70-110) mg/dL POC Glucose (mg/dL) 146 H (75-99) mg/dL Calcium 8.1 L (8.7-10.3) mg/dL Total Bilirubin <0.20 L (0.30-1.20) mg/dL AST 84 H (13-35) U/L ALT 70 H (8-44) U/L Alkaline Phosphatase 141 H (41-126) U/L Total Protein 5.4 L (6.2-8.2) g/dL Albumin 3.2 L (3.8-4.9) g/dL Albumin/Globulin Ratio 1.46 L (1.60-3.17) g/dL 01/26/21 01/26/21 01/27/21 Range/Units 17:25 19:25 07:36 RBC (4.10-5.20) X 10*6/uL Hgb (12.0-15.0) g/dL Hct (37.2-46.3) % MCV (80.0-97.0) fL MCHC (32.0-37.0) g/dL RDW (11.5-14.5) % Absolute Nucleated RBC (0.00-0.00) X 10*3/uL Immature Gran # (0.00-0.04) X 10*3/uL Monocytes # (0.20-1.00) X 10*3/uL Eosinophils # (0.04-0.35) X 10*3/uL NRBC/100 WBC Diff (0.0-0.0) /100 WBCS Chloride (96-109) mmol/L Carbon Dioxide (21.6-31.8) mmol/L Anion Gap (4.00-12.00) mmol/L Est GFR (CKD-EPI)AfAm (60.0-200.0) Est GFR (CKD-EPI)NonAf (60.0-200.0) Glucose (70-110) mg/dL POC Glucose (mg/dL) 163 H 158 H 102 H (75-99) mg/dL Calcium (8.7-10.3) mg/dL Total Bilirubin (0.30-1.20) mg/dL AST (13-35) U/L ALT (8-44) U/L Alkaline Phosphatase (41-126) U/L Total Protein (6.2-8.2) g/dL Albumin (3.8-4.9) g/dL Albumin/Globulin Ratio (1.60-3.17) g/dL Microbiology - Last 24 Hours (Table) 01/26/21 17:35 Body Fluid Culture - Preliminary [facility] 01/21/21 19:00 Blood Culture - Preliminary Blood No Growth after 120 hours Assessment and Plan (1) Acute cholecystitis Current Visit: Yes Status: Acute Code(s): K81.0 - ACUTE CHOLECYSTITIS SNOMED Code(s): 82972355 (2) Acute gangrenous cholecystitis Current Visit: Yes Status: Acute Code(s): K81.0 - ACUTE CHOLECYSTITIS SNOMED Code(s): 67458148 (3) Elevated LFTs Current Visit: Yes Status: Acute Code(s): R79.89 - OTHER SPECIFIED ABNORMAL FINDINGS OF BLOOD CHEMISTRY SNOMED Code(s): 445864445 (4) Antiplatelet or antithrombotic long-term use Current Visit: Yes Status: Acute Code(s): Z79.02 - CUTTING TABLE OPERATOR FIRST (CURRENT) USE OF ANTITHROMBOTICS/ANTIPLATELETS SNOMED Code(s): 991854382 (5) Anticoagulant long-term use Current Visit: Yes Status: Acute Code(s): Z79.01 - NURSING HOME (CURRENT) USE OF ANTICOAGULANTS SNOMED Code(s): 477136138
[2021-01-27] MEDS: INSULIN ASPART (NovoLOG) 100 UNIT/ML VIAL SQ SCH ×4 (08:47→21:11)
[2021-01-27 09:22] LABS: Basophils % (A) 0 %; Eosinophils # (A) 0.1 k/uL (0-0.7); Eosinophils % (A) 1 %; HCT 30.4 % (34.0-46.0); HGB 9.2 gm/dL (11.4-16.0); Hypochromasia Marked; Lymphocytes # (A) 1.9 k/uL (1.0-4.8); Lymphocytes % (A) 18 %; MCH 30.7 pg (25.0-35.0); MCHC 30.1 g/dL (31.0-37.0); Macrocytosis Slight; Mean Platelet Volume 7.7; Monocytes # (A) 0.8 k/uL (0-1.0); Monocytes % (A) 8 %; Neutrophils # (A) 7.5 k/uL (1.3-7.7); Neutrophils % (A) 70 %; Platelet Count 367 k/uL (150-450); RBC 2.98 m/uL (3.80-5.40); WBC 10.6 k/uL (3.8-10.6)
[2021-01-27 09:35] LABS: ALT 53 U/L (4-34); AST 64 U/L (14-36); African American GFR (CKD) 65 (>60 ml/min/1.73 sqM); Albumin 2.9 g/dL (3.5-5.0); Albumin/Globulin Ratio 1.1; Alkaline Phosphatase 133 U/L (38-126); Anion Gap 8 mmol/L; Blood Urea Nitrogen 17 mg/dL (7-17); Calcium 8.5 mg/dL (8.4-10.2); Carbon Dioxide 18 mmol/L (22-30); Chloride 116 mmol/L (98-107); Globulin 2.7 g/dL; Glucose 116 mg/dL (74-99); Non-African American GFR(CKD) 56 (>60 ml/min/1.73 sqM); Potassium 4.8 mmol/L (3.5-5.1); Sodium 142 mmol/L (137-145); Total Bilirubin 0.3 mg/dL (0.2-1.3); Total Protein 5.6 g/dL (6.3-8.2)
[2021-01-27] MEDS: POTASSIUM CHLORIDE ER 20 MEQ TAB.ER PO SCH (09:41)
[2021-01-27] MEDS: ACETAMINOPHEN TAB 325 MG TAB PO PRN (09:41)
[2021-01-27] MEDS: METOPROLOL SUCCINATE (ER) 100 MG TAB.ER.24H PO SCH (09:41)
[2021-01-27] MEDS: hydrALAZINE HCL 50 MG TAB PO SCH ×2 (09:41→21:10)
[2021-01-27] MEDS: GABAPENTIN 300 MG CAP PO SCH ×2 (09:41→21:10)
[2021-01-27] MEDS: amLODIPine 5 MG TAB PO SCH (09:41)
[2021-01-27] MEDS: ASPIRIN 81 MG PO SCH (09:41)
[2021-01-27] MEDS: FAMOTIDINE 20 MG TAB PO SCH (09:41)
[2021-01-27] MEDS: SIMETHICONE 40 MG/0.6 ML DROPS 2,000 MG/30 ML BOTTLE PO SCH ×4 (09:42→21:14)
[2021-01-27] MEDS: SODIUM CHLORIDE 0.9% 1,000 ML IV SCH (09:42)
[2021-01-27 12:29] LABS: Glucose,Whole Blood 130 mg/dL (75-99)
[2021-01-27 14:03] VITALS: BMI 22.8
--- NOTE | 2021-01-27 14:08 | P.PN ---
Subjective Progress Note Date: 01/27/21 Hospital course: Patient is a very pleasant 89-year-old female with a past medical history of CAD with stents on plavix, diastolic CHF, atrial fibrillation on anticoagulation with Eliquis, hypertension, and type II akr-ctwjsgg-qexuroetu diabetes mellitus. she presented to the hospital on 01/20/21 with a chief complaint of abdominal pain accompanied by multiple episodes of vomiting. CT abdomen and pelvis was completed revealing moderate atherosclerotic vascular disease, mild sigmoid diverticulosis, interstitial infiltrates and atelectasis in bilateral lower lobes of lungs, cardiomegaly, and dilated gallbladder suggestive of bladder dysfunction or cholecystitis. patient was found to be POSITIVE for COVID 19 virus infection and have significant leukocytosis with WBC count of 24.81, and macrocytic normochromic anemia with hemoglobin of 9.9. AST elevated at 264 and ALT elevated at 138.patient was admitted under our services with consultation to general surgery. Physical exam: Patient seen and fully evaluated at bedside this morning. Patient sitting up in chair this morning, reports having diffuse abdominal tenderness with continued weakness. Patient did have noted dry cough during assessment, she continues to deny shortness of breath, chest pain, palpitations, nausea, vomiting, or experiencing any numbness/tingling/weakness in her extremities. Patient was having difficulties with reports of urinary retention and reportedly required straight catheterization 3 resulting in Kenny placement. We will monitor overnight and attempt voiding challenge tomorrow morning prior to discharge. Discussed possibility of SNF placement/rehab and patient declined stating she plans to be discharged home to her daughter's house. Morning labs reviewed, hemoglobin stable at 9.2, chloride 116 carbon dioxide 18 normal anion gap at 8, and elevated liver profile with AST of 64, ALT 53, an alkaline phosphatase of 133. Chest X-ray was completed revealing evidence of congestive heart failure with pleural effusions and basilar pulmonary infiltrates increased from previous examination. We will repeat chest x-ray and labs tomorrow morning. Patient remains on room air. Vital signs reviewed and stable. General: Nontoxic, no distress and appears stated age. Derm: Skin warm and dry, normal coloration for ethnicity. Head: Atraumatic, normocephalic and symmetric. Eyes: EOMs intact, no lid lag, and anicteric sclera Mouth: no lip lesions, mucus membranes moist Cardiovascular: regular rate and rhythm with normal S1S2, no murmur, positive posterior tibial pulses bilaterally, and cap refill < 2 seconds. Lungs: Respirations even, regular, and unlabored on room air. Lungs CTA bilaterally, no rhonchi, no rales, no wheezing, and no accessory muscle usage. Abdominal: soft and distended with diffuse abdominal tenderness, postsurgical dressing in place with MARYAN drain. No guarding, no appreciable organomegaly Ext: ROM intact. No gross muscle atrophy, no edema, no contractures Neuro: Speech clear, face symmetrical and CN II-XII grossly intact with no noted focal neuro deficits Psych: Alert and oriented to person, place, time, and situation. Appropriate and pleasant affect. Assessment and Plan of Care: Abdominal pain, secondary to acute cholecystitis Status post robotic-assisted laparoscopic cholecystectomy with lysis of adhesions and placement of Estrada-Hammond drain on 01/25/21 secondary to acute hemorrhagic gangrenous cholecystitis -Postoperative management per general surgery team including pain management, wound care, DVT prophylaxis, and drain care. -Continue with IV fluids and IV antibiotics ceftriaxone and Flagyl -Gen. surgery has cleared patient to resume Eliquis and Plavix tomorrow. -Symptomatic care and pain management. Macrocytic normochromic Anemia -Stable with hemoglobin of 9.2 -We will continue to monitor closely with repeat a.m. labs. Covid 19 virus infection, asymptomatic and vaccinated patient -The patient continues to deny SOB, cough, fever, or chest pain -Not requiring supplemental oxygen at this time -The patient is vaccinated and had also received her booster shot CAD s/p 3 stents -Cardiology consulted for preoperative clearance, stating patient stable to proceed with surgical intervention and Plavix and Eliquis was to be held. Left lower lung soft tissue mass -This was discussed with her daughter on the phone, she stated that a decision will be made regarding what to do with it after she is done with her current illness. Thrombocytosis -Likely reactive -Monitor for now Type II wvw-tuqjzns-icsdobcxq diabetes mellitus -A1c 5.9% -Hold oral hypoglycemic medications in place patient on NovoLog sliding scale with glycemic protocol. Paroxysmal Atrial fibrillation -Hold the patient's Eliquis in anticipation of surgery, continue daily amiodarone, Cardizem, and metoprolol. Hypertension Monitor vital signs and continue daily medication regimen. CODE STATUS: Full code DVT prophylaxis: SCDs, Eliquis to be resumed tomorrow Discussed with: Patient and RN, talked to patient's daughter April via telephone and pt's daughter Lizzette. Anticipated discharge date: likely tomorrow morning Anticipated discharge place: home with A total of 45 minutes was spent on the care of this complex patient more than 50% of the time was spent in counseling and care coordination. Objective - Vital Signs Vital signs: Vital Signs Temp 98.4 F 01/27/21 02:00 Pulse 95 01/27/21 02:00 Resp 18 01/27/21 02:00 BP 148/80 01/27/21 02:00 Pulse Ox 93 L 01/27/21 02:00 Intake & Output 01/26/21 01/27/21 01/27/21 18:59 06:59 18:59 Intake Total 300 Output Total 520 275 Balance -220 -275 Intake: Oral 300 Output: Drainage 20 Right Abdomen 20 Urine 500 275 Straight 250 Other: # Voids 0 1 - Labs CBC & Chem 7: 01/27/21 08:58 01/27/21 08:58 Labs: Abnormal Lab Results - Last 24 Hours (Table) 01/26/21 01/26/21 01/26/21 Range/Units 06:51 06:51 07:34 RBC 2.78 L (4.10-5.20) X 10*6/uL Hgb 8.7 L (12.0-15.0) g/dL Hct 29.2 L (37.2-46.3) % MCV 105.0 H (80.0-97.0) fL MCHC 29.8 L (32.0-37.0) g/dL RDW 15.1 H (11.5-14.5) % Absolute Nucleated RBC 0.02 H (0.00-0.00) X 10*3/uL Immature Gran # 0.06 H (0.00-0.04) X 10*3/uL Monocytes # 1.17 H (0.20-1.00) X 10*3/uL Eosinophils # 0.01 L (0.04-0.35) X 10*3/uL NRBC/100 WBC Diff 0.2 H (0.0-0.0) /100 WBCS Chloride 116 H (96-109) mmol/L Carbon Dioxide 14.3 L (21.6-31.8) mmol/L Anion Gap 14.90 H (4.00-12.00) mmol/L Est GFR (CKD-EPI)AfAm 54.3 L (60.0-200.0) Est GFR (CKD-EPI)NonAf 46.8 L (60.0-200.0) Glucose 117 H (70-110) mg/dL POC Glucose (mg/dL) 119 H (75-99) mg/dL Calcium 8.1 L (8.7-10.3) mg/dL Total Bilirubin <0.20 L (0.30-1.20) mg/dL AST 84 H (13-35) U/L ALT 70 H (8-44) U/L Alkaline Phosphatase 141 H (41-126) U/L Total Protein 5.4 L (6.2-8.2) g/dL Albumin 3.2 L (3.8-4.9) g/dL Albumin/Globulin Ratio 1.46 L (1.60-3.17) g/dL 01/26/21 01/26/21 01/26/21 Range/Units 11:41 17:25 19:25 RBC (4.10-5.20) X 10*6/uL Hgb (12.0-15.0) g/dL Hct (37.2-46.3) % MCV (80.0-97.0) fL MCHC (32.0-37.0) g/dL RDW (11.5-14.5) % Absolute Nucleated RBC (0.00-0.00) X 10*3/uL Immature Gran # (0.00-0.04) X 10*3/uL Monocytes # (0.20-1.00) X 10*3/uL Eosinophils # (0.04-0.35) X 10*3/uL NRBC/100 WBC Diff (0.0-0.0) /100 WBCS Chloride (96-109) mmol/L Carbon Dioxide (21.6-31.8) mmol/L Anion Gap (4.00-12.00) mmol/L Est GFR (CKD-EPI)AfAm (60.0-200.0) Est GFR (CKD-EPI)NonAf (60.0-200.0) Glucose (70-110) mg/dL POC Glucose (mg/dL) 146 H 163 H 158 H (75-99) mg/dL Calcium (8.7-10.3) mg/dL Total Bilirubin (0.30-1.20) mg/dL AST (13-35) U/L ALT (8-44) U/L Alkaline Phosphatase (41-126) U/L Total Protein (6.2-8.2) g/dL Albumin (3.8-4.9) g/dL Albumin/Globulin Ratio (1.60-3.17) g/dL 01/27/21 Range/Units 07:36 RBC (4.10-5.20) X 10*6/uL Hgb (12.0-15.0) g/dL Hct (37.2-46.3) % MCV (80.0-97.0) fL MCHC (32.0-37.0) g/dL RDW (11.5-14.5) % Absolute Nucleated RBC (0.00-0.00) X 10*3/uL Immature Gran # (0.00-0.04) X 10*3/uL Monocytes # (0.20-1.00) X 10*3/uL Eosinophils # (0.04-0.35) X 10*3/uL NRBC/100 WBC Diff (0.0-0.0) /100 WBCS Chloride (96-109) mmol/L Carbon Dioxide (21.6-31.8) mmol/L Anion Gap (4.00-12.00) mmol/L Est GFR (CKD-EPI)AfAm (60.0-200.0) Est GFR (CKD-EPI)NonAf (60.0-200.0) Glucose (70-110) mg/dL POC Glucose (mg/dL) 102 H (75-99) mg/dL Calcium (8.7-10.3) mg/dL Total Bilirubin (0.30-1.20) mg/dL AST (13-35) U/L ALT (8-44) U/L Alkaline Phosphatase (41-126) U/L Total Protein (6.2-8.2) g/dL Albumin (3.8-4.9) g/dL Albumin/Globulin Ratio (1.60-3.17) g/dL Microbiology - Last 24 Hours (Table) 01/26/21 17:35 Body Fluid Culture - Preliminary [facility] 01/21/21 19:00 Blood Culture - Preliminary Blood No Growth after 120 hours
[2021-01-27 17:09] LABS: Glucose,Whole Blood 136 mg/dL (75-99)
[2021-01-27 19:24] LABS: Glucose,Whole Blood 156 mg/dL (75-99)
[2021-01-27] MEDS: ATORVASTATIN 40 MG TAB PO SCH (21:10)
[2021-01-27] MEDS: LATANOPROST 0.005% OPHTH DROPS 2.5 ML BTL BOTH EYES SCH (21:14)
[2021-01-28] MEDS: metroNIDAZOLE-NS PMX 500 MG in SALINE 1 100ML.BAG IVPB SCH (04:48)
[2021-01-28 07:02] VITALS: BP 163/51; PULSE 86; RESP 20; TEMP 98.3
[2021-01-28 07:09] LABS: Glucose,Whole Blood 94 mg/dL (75-99)
[2021-01-28] MEDS: INSULIN ASPART (NovoLOG) 100 UNIT/ML VIAL SQ SCH ×2 (08:32→13:12)
[2021-01-28] MEDS: METOPROLOL SUCCINATE (ER) 100 MG TAB.ER.24H PO SCH (08:46)
[2021-01-28] MEDS: ASPIRIN 81 MG PO SCH (08:46)
[2021-01-28] MEDS: POTASSIUM CHLORIDE ER 20 MEQ TAB.ER PO SCH (08:46)
[2021-01-28] MEDS: hydrALAZINE HCL 50 MG TAB PO SCH (08:46)
[2021-01-28] MEDS: amLODIPine 5 MG TAB PO SCH (08:46)
[2021-01-28] MEDS: GABAPENTIN 300 MG CAP PO SCH (08:46)
[2021-01-28] MEDS: FAMOTIDINE 20 MG TAB PO SCH (08:46)
[2021-01-28] MEDS: SIMETHICONE 40 MG/0.6 ML DROPS 2,000 MG/30 ML BOTTLE PO SCH ×2 (08:47→11:56)
--- NOTE | 2021-01-28 08:51 | XR ---
EXAMINATION TYPE: XR chest 1V portable DATE OF EXAM: 01/28/2021 COMPARISON: 01/26/2021 INDICATION: Follow-up, atypical pneumonia TECHNIQUE: Single frontal view of the chest is obtained. FINDINGS: The heart size is enlarged. The pulmonary vasculature is normal. Left lower lobe infiltrate is present. Previous right lower lobe infiltrate is resolving. Minimal rig ht pleural effusion may be present A catheter is within the right upper quadrant abdomen. There are degenerative changes at the right shoulder. IMPRESSION: 1. Improving bibasilar infiltrates.
[2021-01-28 10:18] LABS: HCT 26.9 % (37.2-46.3); HGB 8.4 g/dL (12.0-15.0); MCH 30.7 pg (27.0-32.0); MCHC 31.2 g/dL (32.0-37.0); MCV 98.2 fL (80.0-97.0); Mean Platelet Volume 10.1 fL (9.5-12.2); Platelet Count 353 X 10*3/uL (140-440); RBC 2.74 X 10*6/uL (4.10-5.20); RDW 15.3 % (11.5-14.5); WBC 8.15 X 10*3/uL (4.50-10.00)
[2021-01-28] MEDS ORDERED: CLOPIDOGREL 75 MG TAB PO STA (11:18)
[2021-01-28] MEDS ORDERED: APIXABAN 5 MG TAB PO SCH (11:30)
[2021-01-28] MEDS ORDERED: FERROUS SULFATE 325 MG TAB PO SCH (12:00)
--- NOTE | 2021-01-28 12:35 | P.PN ---
Subjective Progress Note Date: 01/28/21 CHIEF COMPLAINT: Abdominal pain HISTORY OF PRESENT ILLNESS: Patient is status post Robotic-assisted da Millicent Xi laparoscopic lysis of adhesions and Robotic-assisted da Millicent Xi laparoscopic cholecystectomy for acute hemorrhagic gangrenous cholecystitis. Patient is sitting up in bed. She is tolerating diet. Her pain is controlled. She denies any nausea or vomiting. She has been having bowel movements and flatus. Afebrile. WBC 8.15 Hgb 8.4 PHYSICAL EXAM: VITAL SIGNS: Reviewed. GENERAL: Well-developed in no acute distress. HEENT: No sclera icterus. Extraocular movements grossly intact. Moist buccal mucosa. Head is atraumatic, normocephalic. ABDOMEN: Soft. Mildly distended. MARYAN drain serosanguineous fluid NEUROLOGIC: Alert and oriented. Cranial nerves II through XII grossly intact. ASSESSMENT: 1. Acute hemorrhagic gangrenous cholecystitis status post Robotic-assisted da Millicent Xi laparoscopic lysis of adhesions and Robotic-assisted da Millicnet Xi laparoscopic cholecystectomy 2. Covid PCR positive 3. History of atrial fibrillation 4. Diabetes mellitus 5. Hypertension PLAN: -Patient can be discharged from surgical standpoint -Discharged home with Estrada-Hammond drain -Patient can resume Eliquis and Plavix -Continue low-fat diet Physician Radio Station Operator note has been reviewed by physician. Signing provider agrees with the documented findings, assessment, and plan of care. Objective - Vital Signs Vital signs: Vital Signs Temp 98.3 F 01/28/21 07:01 Pulse 86 01/28/21 07:01 Resp 20 01/28/21 08:00 BP 163/51 01/28/21 07:01 Pulse Ox 95 01/28/21 07:01 Intake & Output 01/27/21 01/28/21 01/28/21 18:59 06:59 18:59 Intake Total 359 Output Total 290 440 301 Balance 69 -440 -301 Weight 58.513 kg Intake: Oral 359 Output: Drainage 40 40 Right Abdomen 40 40 Urine 250 400 300 Uretheral (Kenny) 300 Stool 1 Other: Voiding Method Indwelling Catheter Indwelling Catheter Indwelling Catheter - Labs CBC & Chem 7: 01/28/21 05:53 01/27/21 08:58 Labs: Abnormal Lab Results - Last 24 Hours (Table) 01/27/21 01/27/21 01/27/21 Range/Units 12:28 16:57 19:22 RBC (4.10-5.20) X 10*6/uL Hgb (12.0-15.0) g/dL Hct (37.2-46.3) % MCV (80.0-97.0) fL MCHC (32.0-37.0) g/dL RDW (11.5-14.5) % POC Glucose (mg/dL) 130 H 136 H 156 H (75-99) mg/dL 01/28/21 Range/Units 05:53 RBC 2.74 L (4.10-5.20) X 10*6/uL Hgb 8.4 L (12.0-15.0) g/dL Hct 26.9 L (37.2-46.3) % MCV 98.2 H (80.0-97.0) fL MCHC 31.2 L (32.0-37.0) g/dL RDW 15.3 H (11.5-14.5) % POC Glucose (mg/dL) (75-99) mg/dL Microbiology - Last 24 Hours (Table) 01/26/21 17:35 Gram Stain - Preliminary [facility] Body Fluid Culture - Preliminary 01/21/21 19:00 Blood Culture - Final Blood No Growth after 144 hours
[2021-01-28 13:08] LABS: Glucose,Whole Blood 177 mg/dL (75-99)
[2021-01-28 13:20] LABS: African American GFR (CKD) 85.4 (60.0-200.0); Albumin 2.8 g/dL (3.8-4.9); Albumin/Globulin Ratio 1.39 (1.60-3.17); Anion Gap 10.5 mmol/L (4.00-12.00); BUN/Creat Ratio 16.19 Ratio (12.00-20.00); Blood Urea Nitrogen 11.8 mg/dL (9.0-27.0); Calcium 8.1 mg/dL (8.7-10.3); Carbon Dioxide 15.7 mmol/L (21.6-31.8); Magnesium 1.7 mg/dL (1.5-2.4); Non-African American GFR(CKD) 73.7 (60.0-200.0); Potassium 4.5 mmol/L (3.5-5.5); Total Bilirubin 0.2 mg/dL (0.30-1.20); Total Protein 4.7 g/dL (6.2-8.2)
--- NOTE | 2021-01-28 14:46 | P.DS ---
Providers Date of admission: 01/20/21 22:32 Expected date of discharge: 01/28/21 Attending physician: David Guadarrama MD Consults: 01/20/21 18:12 Consult Physician Routine Consulting Provider: Jenny Hooks Consult Reason/Comments: acute cholecystitis Do you want consulting provider notified?: Already Contacted 01/22/21 08:48 Consult Physician Urgent Consulting Provider: Bogdan Tristan Consult Reason/Comments: cardiac clearance for cholecystectomy Do you want consulting provider notified?: Yes Primary care physician: Mohinder Prior Hospital Course: Discharge Diagnosis: Abdominal pain, secondary to acute cholecystitis Status post robotic-assisted laparoscopic cholecystectomy with lysis of adhesions and placement of Estrada-Hammond drain on 01/25/21 secondary to acute hemorrhagic gangrenous cholecystitis Macrocytic normochromic Anemia Covid 19 virus infection, asymptomatic and vaccinated patient urinary retention, resolved CAD s/p 3 stents Left lower lung soft tissue mass, this was discussed with patient's daughter recommending follow-up Thrombocytosis Type II fyr-hdozspj-yimjcxcng diabetes mellitus Paroxysmal Atrial fibrillation Hypertension Hospital Course: Patient is a very pleasant 89-year-old female with a past medical history of CAD with stents on plavix, diastolic CHF, atrial fibrillation on anticoagulation with Eliquis, hypertension, and type II xna-fxjipao-qsseyiiew diabetes mellitus. she presented to the hospital on 01/20/21 with a chief complaint of abdominal pain accompanied by multiple episodes of vomiting. CT abdomen and pelvis was completed revealing moderate atherosclerotic vascular disease, mild sigmoid diverticulosis, interstitial infiltrates and atelectasis in bilateral lower lobes of lungs, cardiomegaly, and dilated gallbladder suggestive of bladder dysfunction or cholecystitis. patient was found to be POSITIVE for COVID 19 virus infection and have significant leukocytosis with WBC count of 24.81, and macrocytic normochromic anemia with hemoglobin of 9.9. AST elevated at 264 and ALT elevated at 138.patient was admitted under our services with consultation to general surgery. Patient underwent robotic-assisted laparoscopic cholecystectomy with lysis of adhesions and placement of Estrada-Hammond drain on 01/25/21 secondary to acute hemorrhagic gangrenous cholecystitis. She completed 7 day course of antibiotics with ceftriaxone and Flagyl. Patient condition improved daily. Patient was monitored closely for Covid symptoms and she remained on room air continuing to deny any complaints of shortness of breath, chest pain, palptiations or dyspnea with exertion throughout her stay. Repeat Chest X-ray was completed 01/26/21 revealed evidence of congestive heart failure with pleural effusions and basilar pulmonary infiltrates increased from previous examination. Xray again completed 01/28/21 revealing improving bibasilar infiltrates. Patient reports feeling great this morning general surgery recommended discharge home with MARYAN drain in place and follow-up in office. Had discussion with patient and patient's 2 daughters, patient is medically stable for discharge home with where she lives with her daughter and will be provided with home care. Eliquis and plavix resumed today as recommended by surgery team. Physical exam: Patient seen and fully evaluated bedside this morning. She was sitting up in the chair she reports feeling better this morning. Patient appeared to have better appetite today, she has been having bowel movements and passing flatus without any difficulties. Patient denies any nausea or vomiting. She denies having any congestion, shortness of breath, dyspnea with exertion, chest pain, palpitations, or experiencing any numbness/tingling/weakness in her extremities. Patient has been ambulatory in room with walker. Patient medically stable for discharge home where she will be living with her daughter and be provided with home care services. Vital signs reviewed and stable. General: Nontoxic, no distress and appears stated age. Derm: Skin warm and dry, normal coloration for ethnicity. Head: Atraumatic, normocephalic and symmetric. Eyes: EOMs intact, no lid lag, and anicteric sclera Mouth: no lip lesions, mucus membranes moist Cardiovascular: regular rate and rhythm with normal S1S2, no murmur, positive posterior tibial pulses bilaterally, and cap refill < 2 seconds. Lungs: Respirations even, regular, and unlabored on room air. Lungs CTA bilaterally, no rhonchi, no rales, no wheezing, and no accessory muscle usage. Abdominal: soft and distended, nontender to palpation, postsurgical dressing in place with MARYAN drain. No guarding, no appreciable organomegaly Ext: ROM intact. No gross muscle atrophy, no edema, no contractures Neuro: Speech clear, face symmetrical and CN II-XII grossly intact with no noted focal neuro deficits Psych: Alert and oriented to person, place, time, and situation. Appropriate and pleasant affect. A total of 45 minutes of time were spent preparing this complex discharge summary. Patient Condition at Discharge: Stable Plan - Discharge Summary Discharge Rx Participant: No New Discharge Prescriptions: Continue Mirabegron [Myrbetriq] 25 mg PO DAILY@1200 Potassium Chloride [Klor-Con 20] 20 meq PO DAILY Latanoprost/Pf [Latanoprost 0.005% Eye Drop] 1 drop BOTH EYES HS hydrALAZINE HCL [Apresoline] 50 mg PO BID Gabapentin [Neurontin] 300 mg PO BID amLODIPine [Norvasc] 5 mg PO DAILY Clopidogrel [Plavix] 75 mg PO DAILY@1200 Loratadine [Claritin] 10 mg PO DAILY Ferrous Sulfate [Iron (65 MG Elemental)] 325 mg PO BID@1199,1999 Calcium Carbonate [Calcium] 1,200 mg PO HS Acetaminophen [Tylenol Arthritis] 650 mg PO TID PRN PRN Reason: Pain metFORMIN HCL [Glucophage] 500 mg PO BID Metoprolol Succinate (ER) [Toprol XL] 100 mg PO DAILY Furosemide [Lasix] 40 mg PO DAILY Famotidine 20 mg PO BID Apixaban [Eliquis] 5 mg PO BID Atorvastatin Calcium [Lipitor] 40 mg PO HS traMADol HCL 50 mg PO TID PRN PRN Reason: Pain Discharge Medication List Acetaminophen [Tylenol Arthritis] 650 mg PO TID PRN 01/20/21 [History] Apixaban [Eliquis] 5 mg PO BID 01/20/21 [History] Atorvastatin Calcium [Lipitor] 40 mg PO HS 01/20/21 [History] Calcium Carbonate [Calcium] 1,200 mg PO HS 01/20/21 [History] Clopidogrel [Plavix] 75 mg PO DAILY@1200 01/20/21 [History] Famotidine 20 mg PO BID 01/20/21 [History] Ferrous Sulfate [Iron (65 MG Elemental)] 325 mg PO BID@1199,199901/20/21 [History] Furosemide [Lasix] 40 mg PO DAILY 01/20/21 [History] Gabapentin [Neurontin] 300 mg PO BID 01/20/21 [History] Latanoprost/Pf [Latanoprost 0.005% Eye Drop] 1 drop BOTH EYES HS 01/20/21 [History] Loratadine [Claritin] 10 mg PO DAILY 01/20/21 [History] Metoprolol Succinate (ER) [Toprol XL] 100 mg PO DAILY 01/20/21 [History] Mirabegron [Myrbetriq] 25 mg PO DAILY@1200 01/20/21 [History] Potassium Chloride [Klor-Con 20] 20 meq PO DAILY 01/20/21 [History] amLODIPine [Norvasc] 5 mg PO DAILY 01/20/21 [History] hydrALAZINE HCL [Apresoline] 50 mg PO BID 01/20/21 [History] metFORMIN HCL [Glucophage] 500 mg PO BID 01/20/21 [History] traMADol HCL 50 mg PO TID PRN 01/20/21 [History] Follow up Appointment(s)/Referral(s): Jenny Hooks MD [STAFF PHYSICIAN] - 02/02/21 [facility], [NON-STAFF] - 1 Week Prior,DO Mohinder [Primary Care Provider] - 1-2 days Marcus Simms MD [STAFF PHYSICIAN] - 1 Week (for follow up of lung mass) Ambulatory/Diagnostic Orders: Basic Metabolic Panel [LAB.AMB] Location: None Selected Complete Blood Count w/diff [LAB.AMB] Time Frame: 3 Days, Location: None Selected Patient Instructions/Handouts: *Surgery [facility] - Laparoscopic Cholecystectomy Discharge Instructions, Coronavirus Disease 2019 (COVID-19) Activity/Diet/Wound Care/Special Instructions: Activity: As tolerated. Take breaks as needed. Diet: Heart healthy and carb consistent diet. Avoid salts, or foods with hidden salts such as canned or boxed foods and frozen dinners. Extra salt makes your heart work harder and traps the fluid in your body for longer. Special Instructions: Take all of your medications as directed and remember to keep all of your doctor's appointments and follow-up as needed. You are being discharged home with home care as discussed with both you and your daughters. You are being discharged home with MARYAN drain in place and this will be removed upon follow up with your Surgeon, Dr. Hooks in her office. As discussed over telephone with physician, concerns of lung mass of unknown origin, recommend follow up with furniture maker. Thank you for allowing us to participate in your care, it was truly a pleasure having you for our patient!!! Keep a log of MARYAN drain output and bring with you to your follow-up appointment Milk/strip drains 2-3 times a day Discharge Disposition: HOME WITH HOME HEALTH SERVICES
--- NOTE | 2021-02-02 08:17 | CDI ---
Documentation Clarification Form Date: 02/02/2021 07:13:23 AM From: Babrara Tinoco RN, CCDS Admit Date: 01/20/2021 10:32:00 PM Patient Name: Lyudmila Rodriguez Visit Number: [id number] Discharge Date: 01/28/2021 03:15:00 PM ATTENTION: The Clinical Documentation Specialists (CDI) and [facility] Coding Staff appreciate your assistance in clarifying documentation. Please respond to the clarification below the line at the bottom and electronically sign. The CDI & [facility] Coding staff will review the response and follow-up if needed. Please note: Queries are made part of the Legal Health Record. If you have any questions, please contact the author of this message via ITS. Dr. David Guadarrama The patient presented on 01/20/21 with complaints of abdominal pain, vomiting. On admission WBC 11.2, Vital signs 146/87 60 18. 97.6. She is Covid-19 positive. Sepsis documented in progress but not in subsequent progress notes. Additional clarification regarding the etiology/cause of the clinical indicators is requested. 01/21/21 Vital signs at 02:00 154/77 95 18 100.3 94 % RA WBC 24.81 (prior WBC 11.2), AST 264, ALT 138 01/21/21 Attending: (Dr. Guadarrama) Addendum: Sepsis secondary to acute cholecystitis. 01/21/21 Surgery progress note: Patient has positive HIDA scan with acute cholecystitis and has sepsis. Patient is also COVID + 01/25/21 Operative Note: .Acute hemorrhagic gangrenous cholecystitis 01/27/21 Surgery progress note: Acute hemorrhagic gangrenous cholecystitis status post History/Risk Factors: Atrial Fibrillation, Diabetes Mellitus, Hypertension Clinical Indicators: 89-year-old female present to emergency department with complaint of abdominal pain multiple episodes of vomiting. She was found to be Covid positive. 01/20 CT abdomen: shows a distended gallbladder concerning for acute cholecystitis 01/21 HIDA scan: Nonvisualized gall bladder is consistent with acute cholecystitis though the exam was not completely extended to 60 minutes to be more definitive. 01/20 Lactic acid 1.9 Treatment: Robotic-assist da Millicent Xi laparoscopic lysis of adhesions and Robotic-assisted da Millicent Xi laparoscopic cholecystectomy Kefzol 2 GM IVPB Once (01/25) Rocephin 2000 MG IVP then 2 GM IVPB Q 24 HRS (01/21-01/27) Flagyl 500MG IVPB Q8 HRS (01/20-01/28) .9NS 1000 MLS Bolus then 75 MLS HR (01/20-01/27) In your professional opinion, please clarify if these findings signify one of the following conditions: [ ] Sepsis secondary to acute cholecystitis in a COVID + patient, POA [ ] Sepsis, secondary to acute cholecystitis, POA [ ] Sepsis ruled out [ ] Other, please specify [ ] Unable to determine SIRS Criteria: 2 or more of the following may indicate SIRS -Temperature < 96.8F (36C) or > 101.0F (38.3C) -Heart Rate > 90 bpm -Respiratory Rate > 20 breaths/min or PaCO2 < 32 mmHg -White Blood Cell Count > 12,000 or < 4,000 cells/mm3 or > 10% bands (Template Last Reviewed: April 2020) Sepsis secondary to acute cholecystitis in a COVID + patient, POA MTDD
== END 2021-01-28 15:15 | disposition home health service (06) | DRG 853 ==
LOC: EC 15:40 → 6NMEDSUR 18:13 → OBSVTOIN 22:32
PROVIDERS: ADMIT Internal Medicine; ATTEND Internal Medicine
PROC: 0FN44ZZ Release Gallbladder, Percutaneous Endoscopic Approach (ICD-10-PCS; 2021-01-25)
PROC: 8E0W4CZ Robotic Assisted Procedure of Trunk Region, Percutaneous Endoscopic Approach (ICD-10-PCS; 2021-01-25)
PROC: 0FT44ZZ Resection of Gallbladder, Percutaneous Endoscopic Approach (ICD-10-PCS; principal; 2021-01-25 13:00)
DX: A41.89 Other specified sepsis (principal); U07.1 COVID-19; K81.0 Acute cholecystitis; I50.32 Chronic diastolic (congestive) heart failure; I48.19 Other persistent atrial fibrillation; K82.A1 Gangrene of gallbladder in cholecystitis; D64.9 Anemia, unspecified; D75.839 Thrombocytosis, unspecified; E11.9 Type 2 diabetes mellitus without complications; E78.5 Hyperlipidemia, unspecified; I11.0 Hypertensive heart disease with heart failure; K82.8 Other specified diseases of gallbladder; I08.3 Combined rheumatic disorders of mitral, aortic and tricuspid valves; R91.8 Other nonspecific abnormal finding of lung field; I25.10 Atherosclerotic heart disease of native coronary artery without angina pectoris; I27.20 Pulmonary hypertension, unspecified; Z95.5 Presence of coronary angioplasty implant and graft; Z79.01 Long term (current) use of anticoagulants; Z79.02 Long term (current) use of antithrombotics/antiplatelets; Z79.84 Long term (current) use of oral hypoglycemic drugs; Z79.899 Other long term (current) drug therapy
CPT/HCPCS: 36415; 71045; 74177; 78226; 80053; 81003; 82150; 83036; 83605; 83690; 83735; 84100; 84484; 85025; 85027; 85610; 85730; 87040; 87070; 87205; 87324; 87635; 88304; 93005; 94760; 96361; 96374; 96375; 99285